=== PATIENT | male | born 1975 | race Caucasian/White ===

== ENCOUNTER 2023-10-30 16:44 | Inpatient (IN) | payer BC, SELFPAY ==
[2023-10-30] VITALS (13 sets, daily range): BP systolic 149–180; BP diastolic 31–134; PULSE 104–137; RESP 16–20; TEMP 36.6–36.9; O2SAT 95–98; BMI 39.1
--- NOTE | ~2023-10-30 | XR_ITS ---
EXAMINATION: XR CHEST 2 VIEW CLINICAL INFORMATION: Shortness of breath COMPARISON: None TECHNIQUE: PA and lateral views of the chest obtained. FINDINGS: Pulmonary vascular congestion and redistribution are suspected as the upper lung zone vessels are prominent. The cardiac silhouette is mildly enlarged. There are no pleural effusions. XR/XR chest 2V IMPRESSION: Cardiomegaly with pulmonary vascular congestion and redistribution indicative of congestive heart failure.
--- NOTE | 2023-10-30 16:52 | ECG_ITS ---
Test Reason : CHEST PAIN Blood Pressure : / mmHG Vent. Rate : 136 BPM Atrial Rate : 136 BPM P-R Int : 164 ms QRS Dur : 106 ms QT Int : 288 ms P-R-T Axes : 053 -13 042 degrees QTc Int : 433 ms Atrial fibrillation with rapid ventricular response with premature ventricular or aberrantly conducted complexes Minimal voltage criteria for LVH, may be normal variant ( Crescent product ) Borderline ECG No previous ECGs available Referred By: Kimmy Mahmood Electronically Signed By:PELON PARKS MD
--- NOTE | 2023-10-30 16:58 | ED.GENADULT ---
HPI - General Adult General Chief complaint: Arrhythmia/Palpitations Stated complaint: High BP Time Seen by Provider: 10/30/23 17:36 Source: patient Mode of arrival: ambulatory Limitations: no limitations History of Present Illness ED Provider: Dr. Debbi Alston HPI narrative: Patient comes to the emergency room complaining of palpitations and shortness of breath. Patient states that he went to see his primary care physician today, patient states that for the last few days he has been complaining of mild shortness of breath, initially thought he had a mild URI. Patient states that his PCP then EKG in the office and told him that he has atrial fibrillation, sent him to the emergency room for further evaluation. Patient denies chest pain or shortness of breath at this time, no palpitations. Patient states that he was also told that his blood pressure was elevated, patient states he has no history of hypertension. Related Data Allergies Allergy/AdvReac Type Severity Reaction Status Date / Time No Known Allergies Allergy Verified 10/30/23 17:01 Review of Systems Review of Systems: Constitutional : No Weight loss, No Fever, No Chills, No Night Sweats, No Fatigue, No Malaise ENT/Mouth : No Hearing loss, No Ear Pain, No Nasal Congestion, No Sinus Pain, No Hoarseness, No sore throat, No Rhinorrhea, No Swallowing Difficulty Eyes: No Eye Pain, No Swelling, No Redness, No Foreign Body, No Discharge, No Vision Changes Cardiovascular : No Chest Pain, complaining of mild shortness of breath worse with exertion vitals are retirement addressed, No Palpitations Respiratory : No Cough, No Sputum, No Wheezing, No Smoke Exposure, complaining of Dyspnea Gastrointestinal : No Nausea, No Vomiting, No Diarrhea, No Constipation, No abdominal Pain, No Hematochezia, No Melena Genitourinary : no irregular bleeding, No Dysuria, No Urinary Frequency, No Hematuria, No Urinary Incontinence, No Urgency, No Flank Pain, No Urinary Flow Changes, No Hesitancy Musculoskeletal : No joint pain, No Myalgias, No Joint Swelling Skin : No Skin Lesions, No rash Neuro : No Weakness, No Numbness, No Paresthesias, No Loss of Consciousness, No Dizziness, No Headache Psych : No Anxiety/Panic, No Depression, No SI/HI/AH/VH, No Social Issues, Heme/Lymph: No Bruising, No Bleeding,No Lymphadenopathy Endocrine : No Polyuria, No Polydipsia, No Temperature Intolerance [facility] Social History Social History Unable to assess alcohol history related to: Unable to respond Patient Tobacco Use Status: Never used Tobacco Advance Directives: No Advance Directives Information Provided: Yes Nutrition Risks: No Nutritional Risk Physical Exam ED Vital Signs: Vital Signs - 24 hr 10/30/23 16:57 10/30/23 18:04 10/30/23 18:07 Temperature 97.9 F Pulse Rate 137 H 131 H 131 H Respiratory Rate 16 20 Blood Pressure 149/100 H 180/111 H 180/111 H Pulse Oximetry 98 96 Oxygen Delivery Method Room Air Room Air 10/30/23 19:20 10/30/23 19:52 10/30/23 20:15 Temperature 98.5 F Pulse Rate 122 H 120 H 117 H Respiratory Rate 20 20 Blood Pressure 160/120 H 177/129 H 168/132 H Pulse Oximetry 96 96 Oxygen Delivery Method Room Air Room Air 10/30/23 20:35 10/30/23 20:49 10/30/23 20:55 Temperature Pulse Rate 114 H 125 H Respiratory Rate 20 20 Blood Pressure 158/134 H 158/134 H 158/131 H Pulse Oximetry 96 96 Oxygen Delivery Method Room Air Room Air 10/30/23 21:04 10/30/23 21:07 Temperature Pulse Rate 121 H 126 H Respiratory Rate Blood Pressure 158/31 H 158/31 H Pulse Oximetry Oxygen Delivery Method BMI result Body Mass Index 39.1 Const Other: Appearance: Alert. Oriented X3. No acute distress. Eyes: Pupils equal, round and reactive to light. ENT: Pharynx normal. Neck: Normal inspection. Neck supple. No lymph nodes noted. No crepitus CVS: Normal heart rate and rhythm. Pulses normal. Normal S1 and S2 Respiratory: Irregularly irregular heart rate in the 140s. Mild bilateral crackles in the both bases, No Wheezing. No rales Abdomen: Soft and nontender. No rigidity. No distention. Skin: Skin warm and dry. Normal skin color. Normal skin turgor. Extremities: No lower extremity edema. No Lacerations. No Rash Neuro: Oriented X 3. No motor deficit. No sensory deficit. Moving all extremities. No slurred speech. CN 2 through 12 grossly intact Psych: calm, cooperative, normal affect Course Course Course Narrative: This is a Rapid Medical Examination (RME) performed by Alonzo Mahmood PA-C in triage. Full HPI, ROS, assessment and treatment plan per primary provider in the Main ED. 48 yo male here for eval of SOB x1 week, worsening last night while sleeping. sob exacerbated with exertion. not on AC. no hx of HTN. denies chest pain, palpitations. no hx of NV, CAD. was at Dr. Gibbons office [employer], EKG showing new onset afib. Dr. merritt brought him down to ED. Plan: ekg, labs, trop, cxr Medications Administered Generic Name Dose Route Start Last Admin Trade Name Freq PRN Reason Stop Dose Admin Apixaban 5 mg 10/30/23 21:00 10/30/23 21:04 Apixaban 5 Mg Tablet PO 5 mg BID MAGDALENA Administration Diltiazem HCl 30 mg 10/30/23 21:00 10/30/23 21:04 Diltiazem Hcl 30 Mg Tablet PO 30 mg QID MAGDALENA Administration Protocol Diltiazem HCl 125 mg/ Sodium 125 mls @ 0 mls/hr 10/30/23 20:00 10/30/23 21:07 Chloride IVCONT 10 mg/hr .Q0M MAGDALENA 10 mls/hr Administration Protocol Per Protocol Discontinued Medications Generic Name Dose Route Start Last Admin Trade Name Freq PRN Reason Stop Dose Admin Diltiazem HCl 10 mg 10/30/23 18:02 10/30/23 18:07 Diltiazem Hcl 50 Mg/10 Ml Vial IVPUSH 10/30/23 18:03 10 mg STAT STA Administration Diltiazem HCl 10 mg 10/30/23 19:13 10/30/23 19:20 Diltiazem Hcl 50 Mg/10 Ml Vial IVPUSH 10/30/23 19:14 10 mg STAT STA Administration Furosemide 40 mg 10/30/23 19:58 10/30/23 20:49 Furosemide 40 Mg/4 Ml Vial IVPUSH 10/30/23 19:59 40 mg ONCE ONE Administration Protocol Medical Decision Making Medical Decision Making [facility] Narrative: -my interpretation of EKG: Atrial fibrillation, heart rate 136, no ST segment depression or elevation, nonspecific T-wave changes, NSTEMI not suspected, QTC 433 -my interpretation of labs: Normal hematology and chemistry, BNP 631, troponins 76.5, only for the patient -my interpretation of chest x-ray: Cardiomegaly, mild pulmonary edema -patient received initially a dose of Cardizem 10 mg. Blood pressure in the 190s, patient's blood pressure did not change, heart rate improved to 110, still in AFib. -Patient received a 2nd dose of Cardizem 10 mg, a total of 20 mg. Also patient received Lasix. -I discussed with the patient that now he has history of hypertension, atrial fibrillation and CHF. -patient being admitted, discussed the patient with Dr. Guan Differential Diagnosis Differential Diagnoses: The differential diagnosis associated with the presentation includes (CHF, atrial fibrillation, atrial flutter, SVT, hypertensive urgency) Admission/Observation Consideration of admission/observation: Escalation of care including admission/observation considered Consult Healthcare Provider Management of the patient was discussed with: Hospitalist Lab Data MDM Lab Attestation statement: I reviewed the patient's lab results. 10/30/23 17:13 10/30/23 17:13 Labs: Lab Results 10/30/23 10/30/23 Range/Units 17:13 17:15 WBC 8.4 (4.8-10.8) X10*3/uL RBC 5.27 (4.60-5.80) X10*6/uL Hgb 16.1 (14.0-18.0) g/dl Hct 47.3 (42.0-52.0) % MCV 89.8 (80.0-98.0) fL MCH 30.6 (27.0-33.0) pg MCHC 34.0 (31.0-36.0) g/dl RDW 13.5 (11.0-16.0) % Plt Count 248 (160-400) X10*3/uL MPV 11.3 (9.4-12.4) fL Immature Gran % (Auto) 0.7 H (0.0-0.4) % Neut % (Auto) 71.8 (45-73) % Lymph % (Auto) 17.3 L (20-40) % [place] % (Auto) 8.9 (2-11) % Eos % (Auto) 0.7 (0-4) % Baso % (Auto) 0.6 (0-2) % Lymph # (Auto) 1.5 (1.2-4.9) X10*3/uL [place] # (Auto) 0.7 (0.1-1.2) X10*3/uL Eos # (Auto) 0.1 (0.0-0.4) X10*3/uL Baso # (Auto) 0.1 (0.0-0.2) X10*3/uL Abs Immat Gran (auto) 0.06 H (0.00-0.03) X10*3/uL Absolute Neuts (auto) 6.0 (2.0-8.3) x10*3/uL Absolute Nucleated RBC 0.000 (0.0-0.012) X10*3/uL Nucleated RBC % (auto) 0.0 (0.0-0.2) /100WBC Hold Blue Top SEE NOTE Sodium 145 (135-145) mmol/L Potassium 3.4 (3.3-5.1) mmol/L Chloride 108 (96-108) mmol/L Carbon Dioxide 23 (22-29) mmol/L Anion Gap 17 (12-20) BUN 21 H (9-16) mg/dL Creatinine 1.31 (0.5-1.4) mg/dL Estim Creat Clear Calc 101.3 Estimated GFR 59 Random Glucose 122 H (60-115) mg/dL Calcium 9.4 (8.4-10.2) mg/dL Magnesium 2.2 (1.6-2.6) mg/dL Total Bilirubin 1.0 (0.0-1.0) mg/dL AST 33 (5-37) U/L ALT 47 H (0-40) U/L Alkaline Phosphatase 70 (39-117) U/L Troponin I High Sens 76.5 H (<3.5-35.0) ng/L B-Natriuretic Peptide 631 H (<100) pg/mL Total Protein 7.0 (6.5-8.0) g/dL Albumin 4.1 (3.5-5.0) g/dL Lipase 14 (8-78) U/L Independent Interpretation I performed an independent interpretation of an: EKG and Plain X-Ray Radiology Impression Discussion of test interpretation with radiology: I have reviewed the radiologist's reading. Radiologist Impression: Pulmonary vascular congestion and redistribution are suspected as the upper lung zone vessels are prominent. The cardiac silhouette is mildly enlarged. There are no pleural effusions. XR/XR chest 2V IMPRESSION: Cardiomegaly with pulmonary vascular congestion and redistribution indicative of congestive heart failure. Critical Care Time Critical Care Time Critical Care Time: Yes Total Critical Care Time: 60 Attestation: Pulmonary vascular congestion and redistribution are suspected as the upper lung zone vessels are prominent. The cardiac silhouette is mildly enlarged. There are no pleural effusions. XR/XR chest 2V IMPRESSION: Cardiomegaly with pulmonary vascular congestion and redistribution indicative of congestive heart failure. Discharge Plan Discharge Clinical Impression: Acute congestive heart failure, Atrial fibrillation, Hypertensive urgency Patient Disposition: Admitted As Inpatient Print Language: Azeri
[2023-10-30 17:19] LABS: MANUAL DIFF FLAG NO
[2023-10-30 17:33] LABS: Basophils Absolute Auto 0.1 X10*3/uL (0.0-0.2); Basophils Percent Auto 0.6 % (0-2); Eosinophils Absolute Auto 0.1 X10*3/uL (0.0-0.4); Eosinophils Percent Auto 0.7 % (0-4); Hematocrit 47.3 % (42.0-52.0); Hemoglobin 16.1 g/dl (14.0-18.0); Imm Gran Abs Auto 0.06 X10*3/uL (0.00-0.03); Imm Gran Pct Auto 0.7 % (0.0-0.4); Lymphocytes Absolute Auto 1.5 X10*3/uL (1.2-4.9); Lymphocytes Percent Auto 17.3 % (20-40); Mean Corpuscular Hemoglobin 30.6 pg (27.0-33.0); Mean Corpuscular Volume 89.8 fL (80.0-98.0); Mean Platelet Volume 11.3 fL (9.4-12.4); Monocytes Absolute Auto 0.7 X10*3/uL (0.1-1.2); Monocytes Percent Auto 8.9 % (2-11); Neutrophils Percent Auto 71.8 % (45-73); Platelet Count 248 X10*3/uL (160-400); Red Blood Count 5.27 X10*6/uL (4.60-5.80); Red Cell Distribution Width 13.5 % (11.0-16.0); White Blood Count 8.4 X10*3/uL (4.8-10.8)
[2023-10-30 17:41] LABS: Alanine Aminotransferase 47 U/L (0-40); Albumin Level 4.1 g/dL (3.5-5.0); Alkaline Phosphatase 70 U/L (39-117); Anion Gap 17 (12-20); Aspartate Amino Transferase 33 U/L (5-37); Blood Urea Nitrogen 21 mg/dL (9-16); Calcium 9.4 mg/dL (8.4-10.2); Carbon Dioxide 23 mmol/L (22-29); Chloride 108 mmol/L (96-108); Creatinine Clr Calc Pharmacy 101.3; Estimated Glomerular Filt Rate 59; Glucose Random 122 mg/dL (60-115); Lipase 14 U/L (8-78); Magnesium 2.2 mg/dL (1.6-2.6); Potassium 3.4 mmol/L (3.3-5.1); Sodium 145 mmol/L (135-145)
[2023-10-30 17:48] LABS: Troponin-I High Sensitivity 76.5 ng/L (<3.5-35.0)
[2023-10-30] MEDS: dilTIAZem HCL 50 MG/10 ML VIAL 10 MG IVPUSH ×2 (18:07→19:20)
[2023-10-30 18:53] LABS: B Type Natriuretic Peptide 631 pg/mL (<100)
--- NOTE | 2023-10-30 19:27 | PC.NURSE ---
Pt aox4 resting at the bedside. Medicated with Cardizem 10mg as ordered. Pt continues to be in a-fib with HR 120's. Denies chest pain and sob at this time. Monitoring is ongoing.
--- NOTE | 2023-10-30 19:53 | MHC.EDTECH ---
This tech took over care of patient at 1900,hourly rounds and vitals completed,BP is elevated 177/129 and HR is 120,RN and MD made aware. Belongings list completed and copy placed in chart.
--- NOTE | 2023-10-30 20:47 | P.HPHOSP_ITS ---
History of Present Illness Date of Service: 10/30/23 Chief Complaint: Dyspnea This is a 48-year-old male with no pertinent past medical history and not on prescription medications who presents to the emergency department for evaluation of dyspnea. Patient states he has been having dyspnea that started 5 days prior to presentation. He had an episode of PND 2 days prior to presentation. Admits orthopnea and dyspnea which is worse with exertion. No history of similar symptoms in the past. Also had an episode of palpitations 2 days ago. Patient went to his PCP today and was asked to come to the ER. No history of irregular heart rhythms or CHF in the past. No history of coronary artery disease. No family history of early CAD. Patient denies fever, chills, chest discomfort, abdominal pain, changes in urinary or bowel habits. In the emergency department, patient was found to be in AFib with RVR and imaging concerning for pulmonary edema with raised BNP. Review of Systems 2 Constitutional: Constitutional: Reports no additional constitutional complaints Cardiovascular: Cardiovascular: Reports rapid heart rate, Reports dyspnea on exertion, Reports orthopnea and Reports paroxysmal nocturnal dyspnea Respiratory: Respiratory: Reports dyspnea on exertion Gastrointestinal: Gastrointestinal: Reports no additional gastrointestinal complaints Genitourinary: Genitourinary: Reports no additional male genitourinary complaints PMFSH Pertinent family history: No family history of early CAD Social History Unable to assess alcohol history related to: Unable to respond Patient Tobacco Use Status: Never used Tobacco Meds Allergies Allergy/AdvReac Type Severity Reaction Status Date / Time No Known Allergies Allergy Verified 10/30/23 17:01 Active Medications: Current Medications Diltiazem HCl 125 mg/ Sodium (Chloride) 125 mls @ 0 mls/hr IVCONT .Q0M MAGDALENA; Protocol Physical Exam 2 Vital Signs and Narrative: Vital Signs: Last Vital Signs Temp 98.5 F 10/30/23 19:52 Pulse 120 H 10/30/23 19:52 Resp 20 10/30/23 19:52 BP 177/129 H 10/30/23 19:52 Pulse Ox 96 10/30/23 19:52 O2 Del Method Room Air 10/30/23 19:52 BMI result Body Mass Index 39.1 Middle-aged male lying in bed in no distress Neck supple, + JVD Irregularly irregular, S1-S2 heard Bilateral crackles present Abdomen soft nontender, no guarding, no rigidity Patient is awake, alert and oriented to self, place, time and person ; no focal motor deficit Psych: Normal mood Bilateral pedal edema Results Labs 10/30/23 17:13 10/30/23 17:13 Labs: Laboratory Results - last 24 hr 10/30/23 10/30/23 17:13 17:15 MCV 89.8 MCH 30.6 MCHC 34.0 RDW 13.5 Plt Count 248 MPV 11.3 Immature Gran % (Auto) 0.7 H Neut % (Auto) 71.8 Lymph % (Auto) 17.3 L [place] % (Auto) 8.9 Eos % (Auto) 0.7 Baso % (Auto) 0.6 Lymph # (Auto) 1.5 [place] # (Auto) 0.7 Eos # (Auto) 0.1 Baso # (Auto) 0.1 Abs Immat Gran (auto) 0.06 H Absolute Neuts (auto) 6.0 Absolute Nucleated RBC 0.000 Nucleated RBC % (auto) 0.0 Hold Blue Top SEE NOTE Anion Gap 17 Estim Creat Clear Calc 101.3 Estimated GFR 59 Random Glucose 122 H Calcium 9.4 Magnesium 2.2 Total Bilirubin 1.0 AST 33 ALT 47 H Alkaline Phosphatase 70 Troponin I High Sens 76.5 H B-Natriuretic Peptide 631 H Total Protein 7.0 Albumin 4.1 Lipase 14 Imaging Radiologist's Impressions: Impressions Chest X-Ray 10/30/23 18:40 IMPRESSION: Cardiomegaly with pulmonary vascular congestion and redistribution indicative of congestive heart failure. Assessment and Plan (1) Acute congestive heart failure: Status: Acute (2) Atrial fibrillation with RVR: Status: Acute Plan This is a 48-year-old male with no pertinent past medical history and not on prescription medications who presents to the emergency department for evaluation of dyspnea. #. Acute congestive heart failure, unknown EF (new diagnosis): Will admit patient and initiate IV diuresis. Strict I's and O's. Low-salt diet. Obtaining transthoracic echocardiogram and consulting Cardiology. #. AFib with RVR, new diagnosis: Currently on IV diltiazem drip. Chads Vasc score 2. Initiating anticoagulation. Appreciate cardiology assistance #. Hypertensive urgency/emergency: Monitor blood pressure with diuresis and SA alondra blocking agents. Trend and optimize #. Elevated troponin: Likely type 2 in the setting of increased demand. Trend. DVT prophylaxis: Kalyn Full code Admit as inpatient and will require two night minimum hospital stay for IV diltiazem drip, IV diuresis, close monitoring of heart rate and volume status (as above), which is not possible in a lesser acute setting. Specialist consult pending Quality Stroke Does the patient have a stroke diagnosis?: No VTE Prior VTE?: No VTE Risk Level:: Medical - moderate - high VTE Device Contraindication: Treatment Not Indicated VTE Drug Contraindication: N/A - Med Ordered
[2023-10-30] MEDS: Furosemide 40 MG/4 ML VIAL IVPUSH (20:49)
[2023-10-30] MEDS: Apixaban 5 MG TABLET PO (21:04)
[2023-10-30] MEDS: dilTIAZem HCL 30 MG TABLET PO (21:04)
[2023-10-30] MEDS: dilTIAZem HCL 125 MG in 0.9 % Sodium Chloride 100 ML 10 MG IVCONT (21:07)
--- NOTE | 2023-10-30 21:13 | PC.NURSE ---
Diltiazem drip started at 10mg/hr per protocol. Pt continues to be in a-fib on the monitor with HR 120-140 with eleveted BP 167/136. Dr. Guan is aware. Pt denies any chest pain or sob at this time.Monitoring is ongoing.
--- NOTE | 2023-10-30 21:26 | MHC.EDTECH ---
Patient ambulated to the bathroom with a steady gait,BP elevated 158/131 HR 125 RN is aware.call de la cruz in reach
[2023-10-30 22:15] LABS: Troponin-I High Sensitivity 84.6 ng/L (<3.5-35.0)
--- NOTE | 2023-10-30 22:21 | PHA.MEDREC ---
Pharmacy Consult ? Medication Reconciliation Pharmacy has completed the medication reconciliation. Patient on no medications
--- NOTE | 2023-10-30 22:46 | PC.NURSE ---
Pt aox4 resting at the bedside. Continues to be in a-fib with HR 120's. Drip increased to 15m/hr per protocol. Monitoring is ongoing.
--- NOTE | 2023-10-30 23:43 | MHC.EDTECH ---
Patient urinated 200MLS of yellow urine in urinal,hourly rounds and vitals completed,BP elevated 173/110,HR 104 RN is aware
--- NOTE | 2023-10-30 23:54 | PC.NURSE ---
Yonny text sent to Dr. Guan regarding elevated BP. Orders to continue to monitor.
[2023-10-31] VITALS (12 sets, daily range): BP systolic 149–165; BP diastolic 101–134; PULSE 94–116; RESP 14–98; TEMP 36.7–36.9; O2SAT 95–96
--- NOTE | 2023-10-31 02:50 | MHC.EDTECH ---
Hourly rounds and vitals completed,BP elevated 155/115, HR 105, RN and hospitalist are aware.Patient urinated 300MLS in urinal.
[2023-10-31 05:14] LABS: MANUAL DIFF FLAG NO
[2023-10-31 05:17] LABS: Basophils Absolute Auto 0.1 X10*3/uL (0.0-0.2); Basophils Percent Auto 0.6 % (0-2); Eosinophils Absolute Auto 0.1 X10*3/uL (0.0-0.4); Hematocrit 45.9 % (42.0-52.0); Hemoglobin 15.8 g/dl (14.0-18.0); Imm Gran Abs Auto 0.03 X10*3/uL (0.00-0.03); Imm Gran Pct Auto 0.4 % (0.0-0.4); Lymphocytes Absolute Auto 1.5 X10*3/uL (1.2-4.9); Lymphocytes Percent Auto 17.8 % (20-40); Mean Corpuscular HGB Conc 34.4 g/dl (31.0-36.0); Mean Corpuscular Hemoglobin 30.9 pg (27.0-33.0); Mean Corpuscular Volume 89.8 fL (80.0-98.0); Monocytes Absolute Auto 0.8 X10*3/uL (0.1-1.2); Monocytes Percent Auto 8.9 % (2-11); Neutrophils Percent Auto 71.3 % (45-73); Platelet Count 209 X10*3/uL (160-400); Red Blood Count 5.11 X10*6/uL (4.60-5.80); Red Cell Distribution Width 13.4 % (11.0-16.0); White Blood Count 8.4 X10*3/uL (4.8-10.8)
[2023-10-31 05:50] LABS: Anion Gap 14 (12-20); Blood Urea Nitrogen 15 mg/dL (9-16); Calcium 8.9 mg/dL (8.4-10.2); Carbon Dioxide 23 mmol/L (22-29); Chloride 108 mmol/L (96-108); Creatinine Clr Calc Pharmacy 127.6; Estimated Glomerular Filt Rate > 60; Glucose Random 107 mg/dL (60-115); Potassium 2.9 mmol/L (3.3-5.1); Sodium 142 mmol/L (135-145)
--- NOTE | 2023-10-31 05:55 | PC.NURSE ---
Critical lab received: Potassium 2.9 Addison text sent to Dr. Guan. No new orders received at this time.
[2023-10-31 06:01] LABS: Thyroid Stimulating Hormone 1.11 uIU/mL (0.32-4.0)
--- NOTE | 2023-10-31 06:25 | MHC.EDTECH ---
Hourly rounds and vitals completed,BP elevated 149/116,HR 105 RN made aware. Patient is resting comfortably at this time,call de la cruz in reach
[2023-10-31] MEDS: Potassium Chloride Packet 20 MEQ PACKET 40 MEQ PO (06:47)
--- NOTE | 2023-10-31 07:00 | CA_ITS ---
Transthoracic Echocardiogram Patient (Last, First, Middle): Wellington Salinas W Gender: Male Date of : 1975 Age: 48 Procedure Date: 10/31/2023 Procedure Type: Transthoracic Echocardiogram Location: ER Height: 185.42 cm Weight: 134.27 kg BSA: 2.54 m2 Heart Rate: 103 bpm BP: 149 / 116 mmHg Transfer Car Operator Drier: Referring MD: Lou Guan MD Symptoms: CHF Study Quality: Adequate w contrast ECG Rhythm: Atrial Fibrillation w RVR Conclusions: - Normal left ventricular cavity size. There is severely increased left ventricular wall thickness. The left ventricular systolic function is severely decreased. The visually estimated ejection fraction is between 20-25%. - Mildly increased right ventricular cavity size. There is borderline right ventricular systolic function. - The left atrium is severely dilated. - Significantly elevated right atrial pressure. - There is mild dilatation of the sinuses of Valsalva measuring 4.20 cm and mild dilatation of the ascending aorta measuring 4.20 cm. Findings Procedure Information Contrast agent, definity, is being given per protocol without apparent complications. Left Ventricle Normal left ventricular cavity size. There is severely increased left ventricular wall thickness. The left ventricular systolic function is severely decreased. The visually estimated ejection fraction is between 20 25%. There is severe global hypokinesis. Diastolic function is indeterminate on the basis of available data. Right Ventricle Mildly increased right ventricular cavity size. There is borderline right ventricular systolic function. Atria The left atrium is severely dilated. Aortic Valve The aortic valve was not well visualized. There is no aortic valve stenosis. There is no aortic valve regurgitation. Mitral Valve The mitral valve appears normal. There is trace mitral valve regurgitation. There is no mitral valve stenosis. Pulmonic Valve The pulmonic valve is likely normal. Tricuspid Valve Likely normal tricuspid valve structure and function. There is trace tricuspid valve regurgitation. Significantly elevated right atrial pressure. There is no evidence of pulmonary hypertension. Great Vessels There is mild dilatation of the sinuses of Valsalva measuring 4.20 cm and mild dilatation of the ascending aorta measuring 4.20 cm. Venous The inferior vena cava is dilated and does not collapse with inspiration. Pericardium/Pleural There is no evidence of pericardial effusion. Prior Study Comparison No prior study available for comparison. Measurements 2D Linear Measurements IVSd: 1.55 0.6-0.9/0.6-1.0 cm LVIDd: 5.32 3.9-5.3/4.2-5.9 cm LVIDd Index: 2.09 2.4-3.2/2.2-3.1 cm/m2 LVIDs: 4.10 2.0-3.6 cm LVPWd: 1.56 0.7-1.1 cm LA Diam: 6.80 2.7-3.8/3.0-4.0 cm LAIDs Index: 2.68 1.5-2.3 cm/m2 LV Mass: 466.45 67-162/88-224 g LV Mass Index: 183.64 43-95/49-115 g/m2 LVOT Diam: 2.70 3.0+(-)1.3 cm 2D Systolic Function EF 4C: 24.20 >55% EF 2C: 18.10 >55% EF BiP: 21.40 >55% Mitral Valve MV Pk E: 0.86 MV Decel Time: 88.00 E'Lateral: 13.20 E'Medial: 6.96 E/E' Med: 12.40 E/E' Lat: 6.50 PHT: 26.00 MVA PHT: 8.46 Decel Lasalle: 9.78 Aortic Valve AoV Pk Bradley: 1.45 AoV Mn Bradley: 0.89 AoV VTI: 0.22 AoV Pk Grad: 8.00 Aov Mn Grad: 4.00 CLAUDIA Cont.VTI: 3.42 LVOT LVOT Pk Bradley: 0.78 LVOT Mn Bradley: 0.49 LVOT VTI: 0.13 LVOT Pk Grad: 2.00 LVOT Mn Grad: 1.00 LVOT Diam: 2.70 LVOT Area: 5.73 Diastolic Function MV Pk E: 0.86 E'Medial: 6.96 E/E' Med: 12.40 E' Laterial: 13.20 E/E' Lat: 6.50 Right Ventricle TAPSE (mm): 24.40 TVS' Rbadley: 13.60 Tricuspid Valve TR Pk Bradley: 2.08 TR Pk Grad: 17.00 RA Press: 8.00 RVSP: 32.00 Great Vessels Aorta Sinus of Valsalva: 4.20 2.0-3.5 cm Ao Asc: 4.20 2.1-3.4 cm Pulmonary Valve PV Pk Bradley: 0.93 Peak PV Grad: 3.00 Updated in Other Vendor System with Status of Final Brad Khanna MD electronically signed on 10/31/2023 3:40:32 PM with status of Final
[2023-10-31] MEDS: dilTIAZem HCL 30 MG TABLET PO (08:01)
[2023-10-31] MEDS: Apixaban 5 MG TABLET PO ×2 (08:04→20:59)
[2023-10-31] MEDS: Furosemide 40 MG/4 ML VIAL IVPUSH ×2 (08:04→18:16)
[2023-10-31] MEDS: 0.9 % Sodium Chloride Flush 3 ML SYRINGE IVFLUSH (08:04)
--- NOTE | 2023-10-31 11:06 | PC.NURSE ---
Resumed care of patient at 0700, pt remains on dilt drip at this time, he is a/ox4 Denies sob/cp/n/v/d. Pt getting bedside ECHO at this time. Awaiting bed placement
--- NOTE | 2023-10-31 11:17 | HO.PM.IMPN ---
Subjective Subjective Date of Service: 10/31/23 Interval History: sob improved Physical Exam Vital Signs: Vital Signs: Last Vital Signs Temp 98.1 F 10/31/23 06:24 Pulse 109 H 10/31/23 08:01 Resp 16 10/31/23 06:24 BP 165/134 H 10/31/23 08:04 Pulse Ox 96 10/31/23 06:24 O2 Del Method Room Air 10/31/23 06:24 BMI result Body Mass Index 39.1 General: AO X 3, no acute distress Resp: CTA bilateral, no accessory muscles used CVS: S1,S2,irregular rapid, 2+ edema GI: soft, non tender, non distended Neuro: motor grossly intact, alert Psych: appropriate affect, appropriate insight Objective Data Active Medications Acetaminophen (Acetaminophen 325 Mg Tablet) 650 mg PO Q6H PRN PRN Reason: Pain, Mild (Pain Scale 1-3) Apixaban (Apixaban 5 Mg Tablet) 5 mg PO BID [facility] Last Admin: 10/31/23 08:04 Dose: 5 mg Documented By: THEODORE Diltiazem HCl (Diltiazem Hcl 30 Mg Tablet) 30 mg PO QID [facility]; Protocol Last Admin: 10/31/23 08:01 Dose: 30 mg Documented By: THEODORE Furosemide (Furosemide 40 Mg/4 Ml Vial) 40 mg IVPUSH DAILY [facility]; Protocol Last Admin: 10/31/23 08:04 Dose: 40 mg Documented By: THEODORE Diltiazem HCl 125 mg/ Sodium (Chloride) 125 mls @ 0 mls/hr IVCONT .Q0M [facility]; Protocol Last Titration: 10/31/23 10:53 Dose: Infused Documented By: THEODORE Melatonin (Melatonin 3 Mg Tablet) 6 mg PO BEDTIME PRN PRN Reason: Insomnia Ondansetron HCl (Ondansetron Hcl 4 Mg/2 Ml Vial) 4 mg IVPUSH Q8H PRN PRN Reason: Nausea and Vomiting Sodium Chloride (0.9 % Sodium Chloride Flush 3 Ml Syringe) 3 ml IVFLUSH QSHIFT [facility] Last Admin: 10/31/23 08:04 Dose: 3 ml Documented By: THEODORE Labs 10/31/23 05:09 10/31/23 05:09 Labs: Laboratory Results - last 24 hr 10/30/23 10/30/23 10/30/23 17:13 17:15 21:49 MCV 89.8 MCH 30.6 MCHC 34.0 RDW 13.5 Plt Count 248 MPV 11.3 Immature Gran % (Auto) 0.7 H Neut % (Auto) 71.8 Lymph % (Auto) 17.3 L [place] % (Auto) 8.9 Eos % (Auto) 0.7 Baso % (Auto) 0.6 Lymph # (Auto) 1.5 [place] # (Auto) 0.7 Eos # (Auto) 0.1 Baso # (Auto) 0.1 Abs Immat Gran (auto) 0.06 H Absolute Neuts (auto) 6.0 Absolute Nucleated RBC 0.000 Nucleated RBC % (auto) 0.0 Hold Blue Top SEE NOTE Anion Gap 17 Estim Creat Clear Calc 101.3 Estimated GFR 59 Random Glucose 122 H Calcium 9.4 Magnesium 2.2 Total Bilirubin 1.0 AST 33 ALT 47 H Alkaline Phosphatase 70 Troponin I High Sens 76.5 H 84.6 H B-Natriuretic Peptide 631 H Total Protein 7.0 Albumin 4.1 Lipase 14 TSH 10/31/23 05:09 MCV 89.8 MCH 30.9 MCHC 34.4 RDW 13.4 Plt Count 209 MPV 11.0 Immature Gran % (Auto) 0.4 Neut % (Auto) 71.3 Lymph % (Auto) 17.8 L [place] % (Auto) 8.9 Eos % (Auto) 1.0 Baso % (Auto) 0.6 Lymph # (Auto) 1.5 [place] # (Auto) 0.8 Eos # (Auto) 0.1 Baso # (Auto) 0.1 Abs Immat Gran (auto) 0.03 Absolute Neuts (auto) 6.0 Absolute Nucleated RBC 0.000 Nucleated RBC % (auto) 0.0 Hold Blue Top Anion Gap 14 Estim Creat Clear Calc 127.6 Estimated GFR > 60 Random Glucose 107 Calcium 8.9 Magnesium Total Bilirubin AST ALT Alkaline Phosphatase Troponin I High Sens B-Natriuretic Peptide Total Protein Albumin Lipase TSH 1.11 Assessment and Plan (1) Acute congestive heart failure: Status: Acute Plan 48M no significant past medical history who presented with shortness of breath found to have new onset atrial fibrillation and elevated blood pressures Acute unspecified CHF IV Lasix, follow up echo, cardio eval New onset atrial fibrillation with rapid ventricular response On diltiazem infusion, Eliquis Hypertension Continue diuresis, diltiazem DVT prophylaxis with Eliquis Full code reason for continued hospitalization: IV diuresis, rate control Quality Stroke Does the patient have a stroke diagnosis?: No VTE Prior VTE?: No VTE Risk Level:: Medical - moderate - high VTE Device Contraindication: Treatment Not Indicated VTE Drug Contraindication: N/A - Med Ordered
[2023-10-31] MEDS: dilTIAZem HCL 125 MG in 0.9 % Sodium Chloride 100 ML 15 MG IVCONT (11:26)
--- NOTE | 2023-10-31 13:14 | P.CONCA_ITS ---
History of Present Illness History of Present Illness Date of Service: 10/31/23 Requesting physician: Luis Navarrete Chief complaint: afib, CHF Narrative: [age] year gentleman presenting with atrial fibrillation and new onset congestive heart failure. He has history of hypertension and was diagnosed in 2019 but apparently has not followed up with any doctor since then. He has been drinking 2 times a week. He has been noticing some shortness of breath and palpitations over the last couple of weeks. With these symptoms he presented and was noticed to be in congestive heart failure. He was also in AFib with RVR and has significantly elevated blood pressure. He was started on Cardizem to control atrial fibrillation. Denying chest discomfort. Family history of atrial fibrillation in his father but he is in his 70s. He is saying he does not binge but drinks up to 2 times a week and drinks Tequila. No orthopnea or PND. COUNTS INCLUDE 234 BEDS AT THE [facility] Social History Social History Unable to assess alcohol history related to: Unable to respond Patient Tobacco Use Status: Never used Tobacco Advance Directives: No Advance Directives Information Provided: Yes Nutrition Risks: No Nutritional Risk service: No Meds Allergies Allergy/AdvReac Type Severity Reaction Status Date / Time No Known Allergies Allergy Verified 10/30/23 17:01 Active Medications: Current Medications Acetaminophen (Acetaminophen 325 Mg Tablet) 650 mg PO Q6H PRN PRN Reason: Pain, Mild (Pain Scale 1-3) Apixaban (Apixaban 5 Mg Tablet) 5 mg PO BID [facility] Last Admin: 10/31/23 08:04 Dose: 5 mg Furosemide (Furosemide 40 Mg/4 Ml Vial) 40 mg IVPUSH BID@0900,1800 [facility]; Protocol Losartan Potassium (Losartan Potassium 50 Mg Tablet) 50 mg PO DAILY [facility]; Protocol Melatonin (Melatonin 3 Mg Tablet) 6 mg PO BEDTIME PRN PRN Reason: Insomnia Metoprolol Tartrate (Metoprolol Tartrate 25 Mg Tablet) 25 mg PO TID [facility]; Protocol Ondansetron HCl (Ondansetron Hcl 4 Mg/2 Ml Vial) 4 mg IVPUSH Q8H PRN PRN Reason: Nausea and Vomiting Sodium Chloride (0.9 % Sodium Chloride Flush 3 Ml Syringe) 3 ml IVFLUSH QSHIFT [facility] Last Admin: 10/31/23 08:04 Dose: 3 ml Spironolactone (Spironolactone 25 Mg Tablet) 25 mg PO DAILY [facility]; Protocol Home Medications ?Medication ?Instructions ?Recorded ?Confirmed ?Last Taken ?Type No Known Home Meds 10/30/23 10/30/23 Unknown History Physical Exam 2 Vital Signs: Vital Signs: Last Vital Signs Temp 98.1 F 10/31/23 12:18 Pulse 97 10/31/23 12:18 Resp 14 10/31/23 12:18 BP 155/119 H 10/31/23 12:18 Pulse Ox 95 10/31/23 12:18 O2 Del Method Room Air 10/31/23 12:18 BMI result Body Mass Index 39.1 GENERAL APPEARANCE: in no acute distress, pleasant. NECK: no carotid bruit, ++ jugular venous distention. SKIN: no suspicious lesions, warm and dry. HEART: no murmurs, irregular rate and rhythm. Tachycardic. LUNGS: clear to auscultation bilaterally. ABDOMEN: soft, nontender. EXTREMITIES: no edema. PERIPHERAL PULSES: equal. NEUROLOGIC: No gross deficits, AAO X 3 Objective Labs and Meds 10/31/23 05:09 10/31/23 05:09 Lab results: Laboratory Results - last 24 hr 10/30/23 10/30/23 10/30/23 17:13 17:15 21:49 WBC 8.4 RBC 5.27 Hgb 16.1 Hct 47.3 MCV 89.8 MCH 30.6 MCHC 34.0 RDW 13.5 Plt Count 248 MPV 11.3 Immature Gran % (Auto) 0.7 H Neut % (Auto) 71.8 Lymph % (Auto) 17.3 L [place] % (Auto) 8.9 Eos % (Auto) 0.7 Baso % (Auto) 0.6 Lymph # (Auto) 1.5 [place] # (Auto) 0.7 Eos # (Auto) 0.1 Baso # (Auto) 0.1 Abs Immat Gran (auto) 0.06 H Absolute Neuts (auto) 6.0 Absolute Nucleated RBC 0.000 Nucleated RBC % (auto) 0.0 Hold Blue Top SEE NOTE Sodium 145 Potassium 3.4 Chloride 108 Carbon Dioxide 23 Anion Gap 17 BUN 21 H Creatinine 1.31 Estim Creat Clear Calc 101.3 Estimated GFR 59 Random Glucose 122 H Calcium 9.4 Magnesium 2.2 Total Bilirubin 1.0 AST 33 ALT 47 H Alkaline Phosphatase 70 Troponin I High Sens 76.5 H 84.6 H B-Natriuretic Peptide 631 H Total Protein 7.0 Albumin 4.1 Lipase 14 TSH 10/31/23 05:09 WBC 8.4 RBC 5.11 Hgb 15.8 Hct 45.9 MCV 89.8 MCH 30.9 MCHC 34.4 RDW 13.4 Plt Count 209 MPV 11.0 Immature Gran % (Auto) 0.4 Neut % (Auto) 71.3 Lymph % (Auto) 17.8 L [place] % (Auto) 8.9 Eos % (Auto) 1.0 Baso % (Auto) 0.6 Lymph # (Auto) 1.5 [place] # (Auto) 0.8 Eos # (Auto) 0.1 Baso # (Auto) 0.1 Abs Immat Gran (auto) 0.03 Absolute Neuts (auto) 6.0 Absolute Nucleated RBC 0.000 Nucleated RBC % (auto) 0.0 Hold Blue Top Sodium 142 Potassium 2.9 L* Chloride 108 Carbon Dioxide 23 Anion Gap 14 BUN 15 Creatinine 1.04 Estim Creat Clear Calc 127.6 Estimated GFR > 60 Random Glucose 107 Calcium 8.9 Magnesium Total Bilirubin AST ALT Alkaline Phosphatase Troponin I High Sens B-Natriuretic Peptide Total Protein Albumin Lipase TSH 1.11 Imaging Radiologist's impression: Impressions Chest X-Ray 10/30/23 18:40 IMPRESSION: Cardiomegaly with pulmonary vascular congestion and redistribution indicative of congestive heart failure. Assessment and Plan (1) Atrial fibrillation with RVR: Status: Acute (2) Acute congestive heart failure: Status: Acute (3) Hypertensive urgency: Status: Acute Plan Pleasant gentleman with background of hypertension and alcohol use presenting with palpitations and shortness of breath. Clinically noticed to be in congestive heart failure along with AFib with RVR. Diuresed with 40 mg IV Lasix. Monitor electrolytes closely especially potassium and magnesium. He is hypokalemic. Potassium should be repleted. Adding spironolactone 25 mg twice a day. Magnesium should be checked also and repleted accordingly. Metoprolol 25 mg 3 times a day, losartan 50 mg daily. Adding Jardiance 10 mg daily. Apixaban 5 mg twice a day. As he improves we will do JOAQUIN cardioversion. ECHO was reviewed briefly and there was LV dysfunction but we will reported in more detail. Thank you for allowing me to participate in the care of your patient. Please feel free to contact me if you have any questions. Procedures Date of Service Date of Service: 10/31/23
--- NOTE | 2023-10-31 14:05 | MHC.CM.PN ---
Pt. is independent, still working, he has his car in lot here, or will arrange a ride home if needed at DC. PCP confirmed: Dr. Bustos. DC plan is home, self care. CM will follow for DC planning needs.
[2023-10-31] MEDS: Losartan Potassium 50 MG TABLET PO (14:15)
[2023-10-31] MEDS: Spironolactone 25 MG TABLET PO ×2 (14:16→20:56)
[2023-10-31] MEDS: Metoprolol Tartrate 25 MG TABLET PO ×2 (14:16→20:59)
[2023-10-31] MEDS: Empagliflozin 10 MG TABLET PO (18:16)
--- NOTE | 2023-10-31 22:16 | PC.NURSE ---
pt comes in with SOB x 5 days with little to no PMH. Reports SOB worse with exertion. Was in new onset afib and stated on dilt drip ( now discontinued and HR afib with rate control). transitioned to PO medications. Echo and cardio consult. Pt unaware of echo results at this time. Admit for Afib , CHF- BNP 631. Strict I&O. Low sodium diet. Ambulatory at baseline, A/OX4
[2023-11-01] VITALS (15 sets, daily range): BP systolic 135–172; BP diastolic 106–135; PULSE 89–126; RESP 13–22; TEMP 36.6–36.9; O2SAT 95–954
--- NOTE | 2023-11-01 03:26 | PC.NURSE ---
messaged hospitalist about HTN
[2023-11-01 06:19] LABS: Hematocrit 47.4 % (42.0-52.0); Hemoglobin 16.4 g/dl (14.0-18.0); Mean Corpuscular HGB Conc 34.6 g/dl (31.0-36.0); Mean Corpuscular Volume 89.6 fL (80.0-98.0); Platelet Count 218 X10*3/uL (160-400); Red Blood Count 5.29 X10*6/uL (4.60-5.80); Red Cell Distribution Width 13.6 % (11.0-16.0); White Blood Count 8.2 X10*3/uL (4.8-10.8)
[2023-11-01 06:36] LABS: Anion Gap 16 (12-20); Blood Urea Nitrogen 18 mg/dL (9-16); Carbon Dioxide 22 mmol/L (22-29); Chloride 109 mmol/L (96-108); Creatinine Clr Calc Pharmacy 131.4; Estimated Glomerular Filt Rate > 60; Glucose Fasting 98 mg/dL (60-99); Magnesium 2.2 mg/dL (1.6-2.6); Potassium 3.1 mmol/L (3.3-5.1); Sodium 144 mmol/L (135-145)
[2023-11-01] MEDS: Furosemide 40 MG/4 ML VIAL IVPUSH ×2 (08:39→18:02)
[2023-11-01] MEDS: Apixaban 5 MG TABLET PO ×2 (08:40→21:07)
[2023-11-01] MEDS: Losartan Potassium 50 MG TABLET PO ×2 (08:40→21:07)
[2023-11-01] MEDS: Empagliflozin 10 MG TABLET PO (08:40)
[2023-11-01] MEDS: Metoprolol Tartrate 25 MG TABLET PO ×2 (08:41→10:28)
[2023-11-01] MEDS: 0.9 % Sodium Chloride Flush 3 ML SYRINGE IVFLUSH ×2 (08:41→15:10)
[2023-11-01] MEDS: Potassium Chloride ER 20 MEQ TAB.ER.PRT 40 MEQ PO (08:41)
[2023-11-01] MEDS: Spironolactone 25 MG TABLET PO ×2 (08:42→17:22)
--- NOTE | 2023-11-01 08:49 | PC.NURSE ---
Pt is alert/oriented and pleasant. Skin pink warm and dry. Speaking full sentences. Denies pain, SOB or dizziness. HR noted 105-140s, briefly elevated in 140s. HTN with BP 169/121, Dr Navarrete at bedside, aware of HR and BP. Spoke to pt regarding recent Echo results and plan during admit. Meds given. Ate breakfast
--- NOTE | 2023-11-01 10:09 | PC.NURSE ---
Pt remains hypertensive and tachycardic, Dr Navarrete aware, plan to increase Metoprolol
--- NOTE | 2023-11-01 11:20 | HO.PM.IMPN ---
Subjective Subjective Date of Service: 11/01/23 Interval History: sob improved Physical Exam Vital Signs: Vital Signs: Last Vital Signs Temp 98 F 11/01/23 05:41 Pulse 113 H 11/01/23 11:09 Resp 13 11/01/23 11:09 BP 159/117 H 11/01/23 11:09 Pulse Ox 954 H 11/01/23 10:24 O2 Del Method Room Air 11/01/23 10:24 BMI result Body Mass Index 39.1 GENERAL APPEARANCE: in no acute distress, pleasant. NECK: no carotid bruit, ++ jugular venous distention. SKIN: no suspicious lesions, warm and dry. HEART: no murmurs, irregular rate and rhythm. Tachycardic. LUNGS: clear to auscultation bilaterally. ABDOMEN: soft, nontender. EXTREMITIES: no edema. PERIPHERAL PULSES: equal. NEUROLOGIC: No gross deficits, AAO X 3 Objective Data Active Medications Acetaminophen (Acetaminophen 325 Mg Tablet) 650 mg PO Q6H PRN PRN Reason: Pain, Mild (Pain Scale 1-3) Apixaban (Apixaban 5 Mg Tablet) 5 mg PO BID [facility] Last Admin: 11/01/23 08:40 Dose: 5 mg Documented By: SCOTT Empagliflozin (Empagliflozin 10 Mg Tablet) 10 mg PO DAILY [facility] Last Admin: 11/01/23 08:40 Dose: 10 mg Documented By: SCOTT Furosemide (Furosemide 40 Mg/4 Ml Vial) 40 mg IVPUSH BID@0900,1800 [facility]; Protocol Last Admin: 11/01/23 08:39 Dose: 40 mg Documented By: SCOTT Losartan Potassium (Losartan Potassium 50 Mg Tablet) 50 mg PO DAILY [facility]; Protocol Last Admin: 11/01/23 08:40 Dose: 50 mg Documented By: SCOTT Melatonin (Melatonin 3 Mg Tablet) 6 mg PO BEDTIME PRN PRN Reason: Insomnia Metoprolol Tartrate (Metoprolol Tartrate 50 Mg Tablet) 50 mg PO TID [facility]; Protocol Ondansetron HCl (Ondansetron Hcl 4 Mg/2 Ml Vial) 4 mg IVPUSH Q8H PRN PRN Reason: Nausea and Vomiting Sodium Chloride (0.9 % Sodium Chloride Flush 3 Ml Syringe) 3 ml IVFLUSH QSHIFT [facility] Last Admin: 11/01/23 08:41 Dose: 3 ml Documented By: SCOTT Spironolactone (Spironolactone 25 Mg Tablet) 25 mg PO BIDWM [facility]; Protocol Last Admin: 11/01/23 08:42 Dose: 25 mg Documented By: SCOTT Labs 11/01/23 06:08 11/01/23 06:08 Labs: Laboratory Results - last 24 hr 10/31/23 11/01/23 14:51 06:08 MCV 89.6 MCH 31.0 MCHC 34.6 RDW 13.6 Plt Count 218 MPV 11.0 Absolute Nucleated RBC 0.000 Nucleated RBC % (auto) 0.0 Anion Gap 16 Estim Creat Clear Calc 131.4 Estimated GFR > 60 Fasting Glucose 98 Calcium 9.0 Magnesium 2.2 Troponin I High Sens 74.0 H Assessment and Plan (1) Acute congestive heart failure: Status: Acute Plan 48M no significant past medical history who presented with shortness of breath found to have new onset atrial fibrillation and elevated blood pressures Acute systolic CHF IV Lasix cardio following New onset atrial fibrillation with rapid ventricular response lopressor increasing to 50 tid Hypertension Continue diuresis, metoprolol, losartan DVT prophylaxis with Eliquis Full code reason for continued hospitalization: IV diuresis, rate control Quality Stroke Does the patient have a stroke diagnosis?: No VTE Prior VTE?: No VTE Risk Level:: Medical - moderate - high VTE Device Contraindication: Treatment Not Indicated VTE Drug Contraindication: N/A - Med Ordered
--- NOTE | 2023-11-01 11:35 | PM.PNCARD ---
Subjective Subjective Date of Service: 11/01/23 Interval history: Continues to be in AFib with RVR. Respiratory status is better. ECHO reviewed and discussed with the patient that he has severe cardiomyopathy. Physical Exam Vital Signs: Last Vital Signs Temp 98 F 11/01/23 05:41 Pulse 113 H 11/01/23 11:09 Resp 13 11/01/23 11:09 BP 159/117 H 11/01/23 11:09 Pulse Ox 954 H 11/01/23 10:24 O2 Del Method Room Air 11/01/23 10:24 BMI result Body Mass Index 39.1 GENERAL APPEARANCE: in no acute distress, pleasant. NECK: no carotid bruit, + jugular venous distention. SKIN: no suspicious lesions, warm and dry. HEART: no murmurs, irregular rate and rhythm. Tachycardic. LUNGS: clear to auscultation bilaterally. ABDOMEN: soft, nontender. EXTREMITIES: no edema. PERIPHERAL PULSES: equal. NEUROLOGIC: No gross deficits, AAO X 3 Objective Labs and Meds 11/01/23 06:08 11/01/23 06:08 Lab results: Laboratory Results - last 24 hr 10/31/23 11/01/23 14:51 06:08 WBC 8.2 RBC 5.29 Hgb 16.4 Hct 47.4 MCV 89.6 MCH 31.0 MCHC 34.6 RDW 13.6 Plt Count 218 MPV 11.0 Absolute Nucleated RBC 0.000 Nucleated RBC % (auto) 0.0 Sodium 144 Potassium 3.1 L Chloride 109 H Carbon Dioxide 22 Anion Gap 16 BUN 18 H Creatinine 1.01 Estim Creat Clear Calc 131.4 Estimated GFR > 60 Fasting Glucose 98 Calcium 9.0 Magnesium 2.2 Troponin I High Sens 74.0 H Progress Note: A&P Assessment and plan (1) Atrial fibrillation with RVR: Status: Acute (2) Acute congestive heart failure: Status: Acute (3) Cardiomyopathy: Status: Acute Plan 48-year-old gentleman presenting with shortness of breath and congestive heart failure. He has severe cardiomyopathy, has new onset atrial fibrillation with rapid ventricular response and has uncontrolled hypertension. Blood pressure is somewhat improved but still quite elevated. Increasing losartan to 50 mg twice a day. Continue metoprolol 50 t.i.d.. Continue spironolactone. Monitor electrolytes closely. I think he is still congested and can continue IV diuretics currently. We will plan for a JOAQUIN cardioversion for tomorrow. Thank you for allowing me to participate in the care of your patient. Please feel free to contact me if you have any questions. Time Spent With Patient Time: Total time managing care of this patient today ____ minutes. Progress Note: Quality Stroke Does the patient have a stroke diagnosis?: No Procedures Date of Service Date of Service: 11/01/23
[2023-11-01] MEDS: amLODIPine Besylate 2.5 MG TABLET PO (11:52)
--- NOTE | 2023-11-01 12:16 | PC.NURSE ---
pt medicated per AUG. pt alert an awake, calm and cooperative, awaiting placement on IMC. no complaints or concerns at this time, call de la cruz within reach
[2023-11-01] MEDS: Metoprolol Tartrate 50 MG TABLET PO ×2 (15:10→21:07)
--- NOTE | 2023-11-01 18:07 | PC.NURSE ---
medicated per aug, notified SANJAY Hernandez
[2023-11-02] VITALS (20 sets, daily range): BP systolic 136–167; BP diastolic 96–130; PULSE 72–127; RESP 12–20; TEMP 35.9–37; O2SAT 93–98
--- NOTE | 2023-11-02 | ECG_ITS ---
Test Reason : S/P CARDIOVERSION Blood Pressure : / mmHG Vent. Rate : 085 BPM Atrial Rate : 085 BPM P-R Int : 190 ms QRS Dur : 112 ms QT Int : 402 ms P-R-T Axes : 024 -23 083 degrees QTc Int : 478 ms Sinus rhythm with occasional Premature ventricular complexes Possible Left atrial enlargement Minimal voltage criteria for LVH, may be normal variant ( Will product ) Possible Anterior infarct , age undetermined Abnormal ECG When compared with ECG of 30-OCT-2023 17:05, Sinus rhythm has replaced Afib Referred By: Brad Khanna Electronically Signed By:Brad Khanna
[2023-11-02] MEDS: 0.9 % Sodium Chloride Flush 3 ML SYRINGE IVFLUSH ×4 (04:13→20:06)
--- NOTE | 2023-11-02 04:15 | PC.NURSE ---
delay in administering meds due to caring for other critical patients
[2023-11-02 06:18] LABS: Hematocrit 50.3 % (42.0-52.0); Mean Corpuscular HGB Conc 33.8 g/dl (31.0-36.0); Mean Corpuscular Hemoglobin 30.5 pg (27.0-33.0); Mean Corpuscular Volume 90.3 fL (80.0-98.0); Mean Platelet Volume 11.5 fL (9.4-12.4); Platelet Count 232 X10*3/uL (160-400); Red Blood Count 5.57 X10*6/uL (4.60-5.80); Red Cell Distribution Width 13.5 % (11.0-16.0); White Blood Count 10.9 X10*3/uL (4.8-10.8)
--- NOTE | 2023-11-02 06:20 | PC.NURSE ---
Report given to Short stay. Pt planned to go for cardioverison. 2nd IV line placed in right wrist.
[2023-11-02 06:25] LABS: Anion Gap 16 (12-20); Blood Urea Nitrogen 25 mg/dL (9-16); Calcium 9.3 mg/dL (8.4-10.2); Carbon Dioxide 24 mmol/L (22-29); Chloride 107 mmol/L (96-108); Creatinine Clr Calc Pharmacy 107.9; Estimated Glomerular Filt Rate > 60; Glucose Fasting 89 mg/dL (60-99); Magnesium 2.1 mg/dL (1.6-2.6); Potassium 3.2 mmol/L (3.3-5.1); Sodium 144 mmol/L (135-145)
--- NOTE | 2023-11-02 07:00 | CA_ITS ---
Transesophageal Echocardiogram Patient (Last, First, Middle): Wellington Salinas W Gender: Male Date of : 1975 Age: 48 Procedure Date: 11/02/2023 Procedure Type: Transesophageal Echocardiogram [place] [facility] [place]: 185.42 cm Weight: 134.26 kg BSA: 2.54 m2 Heart Rate: bpm Technical Writer And Editor: Referring MD: Brad Khanna MD Symptoms: Afib Conclusion: ??? Normal left ventricular cavity size. The left ventricular systolic function is severely decreased. The visually estimated ejection fraction is between 20-25%. ??? There is no evidence of a thrombus in the left atrial appendage. Moderate spontaneous echo contrast is seen in the left atrial cavity. Findings Procedure Information Consent was obtained prior to the procedure. The probe was passed with no difficulty. Left Ventricle Normal left ventricular cavity size. The left ventricular systolic function is severely decreased. The visually estimated ejection fraction is between 20-25%. There is severe global hypokinesis. Diastolic function is indeterminate on the basis of available data. Right Ventricle Normal right ventricular cavity size and systolic function. Atria There is no evidence of a thrombus in the left atrial appendage. Moderate spontaneous echo contrast is seen in the left atrial cavity. Aortic Valve Normal aortic valve structure and function. There is no aortic valve stenosis. There is trace (trivial) aortic valve regurgitation. Mitral Valve The mitral valve appears normal. There is trace mitral valve regurgitation. There is no mitral valve stenosis. Pulmonic Valve The pulmonic valve is likely normal. Tricuspid Valve Normal tricuspid valve structure. There is trace tricuspid valve regurgitation. Great Vessels All visible segments of the aorta are normal in size. Pericardium/Pleural There is no evidence of pericardial effusion. Updated by Brad Khanna on 11:35 PM with Status of Final Brad Khanna MD electronically signed on 11/02/2023 11:35:53 PM with status of Final
[2023-11-02] MEDS: Spironolactone 25 MG TABLET PO ×2 (07:18→15:57)
[2023-11-02] MEDS: Apixaban 5 MG TABLET PO ×2 (07:18→20:04)
[2023-11-02] MEDS: Losartan Potassium 50 MG TABLET PO ×2 (07:18→20:05)
[2023-11-02] MEDS: Empagliflozin 10 MG TABLET PO (07:18)
[2023-11-02] MEDS: amLODIPine Besylate 2.5 MG TABLET PO (07:19)
[2023-11-02] MEDS: Furosemide 40 MG TABLET PO (07:20)
[2023-11-02] MEDS: Metoprolol Tartrate 50 MG TABLET PO ×3 (07:21→20:04)
[2023-11-02] MEDS: Potassium Chloride ER 20 MEQ TAB.ER.PRT 40 MEQ PO (07:21)
--- NOTE | 2023-11-02 09:54 | HO.PM.IMPN ---
Subjective Subjective Date of Service: 11/02/23 Interval History: sob improved Physical Exam Vital Signs: Vital Signs: Last Vital Signs Temp 97.2 F 11/02/23 07:46 Pulse 120 H 11/02/23 07:46 Resp 20 11/02/23 07:46 BP 142/102 H 11/02/23 07:46 Pulse Ox 95 11/02/23 07:46 O2 Del Method Room Air 11/02/23 07:46 BMI result Body Mass Index 39.1 GENERAL APPEARANCE: in no acute distress, pleasant. NECK: no carotid bruit, + jugular venous distention. SKIN: no suspicious lesions, warm and dry. HEART: no murmurs, irregular rate and rhythm. Tachycardic. LUNGS: clear to auscultation bilaterally. ABDOMEN: soft, nontender. EXTREMITIES: no edema. PERIPHERAL PULSES: equal. NEUROLOGIC: No gross deficits, AAO X 3 Objective Data Active Medications Acetaminophen (Acetaminophen 325 Mg Tablet) 650 mg PO Q6H PRN PRN Reason: Pain, Mild (Pain Scale 1-3) Amiodarone HCl (Amiodarone Hcl 200 Mg Tablet) 400 mg PO BID [facility] Amlodipine Besylate (Amlodipine Besylate 5 Mg Tablet) 5 mg PO DAILY [facility]; Protocol Apixaban (Apixaban 5 Mg Tablet) 5 mg PO BID [facility] Last Admin: 11/02/23 07:18 Dose: 5 mg Documented By: SARAH Empagliflozin (Empagliflozin 10 Mg Tablet) 10 mg PO DAILY [facility] Last Admin: 11/02/23 07:18 Dose: 10 mg Documented By: SARAH Furosemide (Furosemide 40 Mg Tablet) 40 mg PO DAILY [facility]; Protocol Last Admin: 11/02/23 07:20 Dose: 40 mg Documented By: SARAH Losartan Potassium (Losartan Potassium 50 Mg Tablet) 50 mg PO BID [facility]; Protocol Last Admin: 11/02/23 07:18 Dose: 50 mg Documented By: SARAH Melatonin (Melatonin 3 Mg Tablet) 6 mg PO BEDTIME PRN PRN Reason: Insomnia Metoprolol Tartrate (Metoprolol Tartrate 50 Mg Tablet) 50 mg PO TID [facility]; Protocol Last Admin: 11/02/23 07:21 Dose: 50 mg Documented By: SARAH Sodium Chloride (0.9 % Sodium Chloride Flush 3 Ml Syringe) 3 ml IVFLUSH QSHIFT [facility] Last Admin: 11/02/23 07:21 Dose: 3 ml Documented By: SARAH Spironolactone (Spironolactone 25 Mg Tablet) 25 mg PO BIDWM [facility]; Protocol Last Admin: 11/02/23 07:18 Dose: 25 mg Documented By: SARAH Labs 11/02/23 05:22 11/02/23 05:22 Labs: Laboratory Results - last 24 hr 11/02/23 05:22 MCV 90.3 MCH 30.5 MCHC 33.8 RDW 13.5 Plt Count 232 MPV 11.5 Absolute Nucleated RBC 0.000 Nucleated RBC % (auto) 0.0 Anion Gap 16 Estim Creat Clear Calc 107.9 Estimated GFR > 60 Fasting Glucose 89 Calcium 9.3 Magnesium 2.1 Assessment and Plan (1) Acute congestive heart failure: Status: Acute Plan 48M no significant past medical history who presented with shortness of breath found to have new onset atrial fibrillation and elevated blood pressures Acute systolic CHF diuresed well with iv lasix, will change to po maintence cardio following New onset atrial fibrillation with rapid ventricular response lopressor 50 tid plan for natasha/cv today continue eliquis Hypertension Continue diuresis, metoprolol, losartan DVT prophylaxis with Eliquis Full code reason for continued hospitalization: cardioversion Quality Stroke Does the patient have a stroke diagnosis?: No VTE Prior VTE?: No VTE Risk Level:: Medical - moderate - high VTE Device Contraindication: Treatment Not Indicated VTE Drug Contraindication: N/A - Med Ordered
[2023-11-02] MEDS: Amiodarone HCL 200 MG TABLET 400 MG PO ×2 (10:26→20:04)
[2023-11-02] MEDS: amLODIPine Besylate 5 MG TABLET PO (10:26)
--- NOTE | 2023-11-02 11:25 | PM.PNCARD ---
Subjective Subjective Date of Service: 11/02/23 Interval history: Seen examined at bedside. Clinically improving from heart failure. Still has AFib with RVR. Physical Exam Vital Signs: Last Vital Signs Temp 97.2 F 11/02/23 07:46 Pulse 120 H 11/02/23 07:46 Resp 20 11/02/23 07:46 BP 148/96 H 11/02/23 10:26 Pulse Ox 95 11/02/23 07:46 O2 Del Method Room Air 11/02/23 07:46 BMI result Body Mass Index 39.1 GENERAL APPEARANCE: in no acute distress, pleasant. NECK: no carotid bruit, + jugular venous distention. SKIN: no suspicious lesions, warm and dry. HEART: no murmurs, irregular rate and rhythm. Tachycardic. LUNGS: clear to auscultation bilaterally. ABDOMEN: soft, nontender. EXTREMITIES: no edema. PERIPHERAL PULSES: equal. NEUROLOGIC: No gross deficits, AAO X 3 Objective Labs and Meds 11/02/23 05:22 11/02/23 05:22 Lab results: Laboratory Results - last 24 hr 11/02/23 05:22 WBC 10.9 H RBC 5.57 Hgb 17.0 Hct 50.3 MCV 90.3 MCH 30.5 MCHC 33.8 RDW 13.5 Plt Count 232 MPV 11.5 Absolute Nucleated RBC 0.000 Nucleated RBC % (auto) 0.0 Sodium 144 Potassium 3.2 L Chloride 107 Carbon Dioxide 24 Anion Gap 16 BUN 25 H Creatinine 1.23 Estim Creat Clear Calc 107.9 Estimated GFR > 60 Fasting Glucose 89 Calcium 9.3 Magnesium 2.1 Progress Note: A&P Assessment and plan (1) Atrial fibrillation with RVR: Status: Acute (2) Acute congestive heart failure: Status: Acute (3) Cardiomyopathy: Status: Acute Plan 48-year-old gentleman presenting with shortness of breath and congestive heart failure. He has severe cardiomyopathy, has new onset atrial fibrillation with rapid ventricular response and has uncontrolled hypertension. Blood pressure is improving. Continue same medications. Adding amiodarone 400 mg twice a day. Do not see any other medication we can add safely currently specially with hypokalemia. [place]field cardioversion today. Once sinus rhythm was achieved with discharge him home and arrange outpatient EP evaluation for ablation so we can get him off amiodarone. Discussed with him about complete abstinence from alcohol. Thank you for allowing me to participate in the care of your patient. Please feel free to contact me if you have any questions. Time Spent With Patient Time: Total time managing care of this patient today ____ minutes. Progress Note: Quality Stroke Does the patient have a stroke diagnosis?: No Procedures Date of Service Date of Service: 11/02/23
--- NOTE | 2023-11-02 12:13 | MHC.SHP ---
Pre-Procedural Eval Section A - 24 Hr Update-Section A only Date of Service: 11/02/23 The patient is an INPATIENT: Yes Section B - Complete if H&P > 30 days Chief Complaint: afib, CHF Details of Present Illness: For cardioversion with JOAQUIN. Allergies: Allergies Allergy/AdvReac Type Severity Reaction Status Date / Time No Known Allergies Allergy Verified 10/30/23 17:01 Plan Diagnosis/Plan: Unchanged I have reviewed the history and physical and performed a pertinent physical examination on my patient. No changes have occurred unless specified. Time Spent With Patient Time: Total time managing care of this patient today ____ minutes.
--- NOTE | 2023-11-02 12:49 | PC.NURSE ---
patient was given jardiance this AM. per anesthesia Jardiance must be held for 3 days prior to procedure. Dr. Khanna notified and wishes to proceed urgently with procedure. Anesthesia aware. procedure to proceed as scheduled.
--- NOTE | 2023-11-02 13:07 | HO.ANESPROP2 ---
[facility] Active Problems Active Problems: All Active Problems Cardiomyopathy (Acute) Hypertensive urgency (Acute) Atrial fibrillation (Acute) Atrial fibrillation with RVR (Acute) Acute congestive heart failure (Acute) Past Medical History Functional capacity: uses cane/walker Family History Family history of problems with anesthesia: No Surgical History History of Problems with Anesthesia: No Social History Social History Household Members: Children Housing: House Do you presently have visiting nurse or other home services: No Unable to assess alcohol history related to: Unable to respond Patient Tobacco Use Status: Never used Tobacco service: No Meds Allergies Allergy/AdvReac Type Severity Reaction Status Date / Time No Known Allergies Allergy Verified 10/30/23 17:01 Active Medications: Current Medications Acetaminophen (Acetaminophen 325 Mg Tablet) 650 mg PO Q6H PRN PRN Reason: Pain, Mild (Pain Scale 1-3) Amiodarone HCl (Amiodarone Hcl 200 Mg Tablet) 400 mg PO BID [facility] Last Admin: 11/02/23 10:26 Dose: 400 mg Amlodipine Besylate (Amlodipine Besylate 5 Mg Tablet) 5 mg PO DAILY [facility]; Protocol Last Admin: 11/02/23 10:26 Dose: 5 mg Apixaban (Apixaban 5 Mg Tablet) 5 mg PO BID [facility] Last Admin: 11/02/23 07:18 Dose: 5 mg Empagliflozin (Empagliflozin 10 Mg Tablet) 10 mg PO DAILY [facility] Last Admin: 11/02/23 07:18 Dose: 10 mg Furosemide (Furosemide 40 Mg Tablet) 40 mg PO DAILY [facility]; Protocol Last Admin: 11/02/23 07:20 Dose: 40 mg Losartan Potassium (Losartan Potassium 50 Mg Tablet) 50 mg PO BID [facility]; Protocol Last Admin: 11/02/23 07:18 Dose: 50 mg Melatonin (Melatonin 3 Mg Tablet) 6 mg PO BEDTIME PRN PRN Reason: Insomnia Metoprolol Tartrate (Metoprolol Tartrate 50 Mg Tablet) 50 mg PO TID [facility]; Protocol Last Admin: 11/02/23 07:21 Dose: 50 mg Sodium Chloride (0.9 % Sodium Chloride Flush 3 Ml Syringe) 3 ml IVFLUSH QSHIFT [facility] Last Admin: 11/02/23 07:21 Dose: 3 ml Spironolactone (Spironolactone 25 Mg Tablet) 25 mg PO BIDWM [facility]; Protocol Last Admin: 11/02/23 07:18 Dose: 25 mg Home Medications ?Medication ?Instructions ?Recorded ?Confirmed ?Last Taken ?Type No Known Home Meds 10/30/23 10/30/23 Unknown History Exam Height,Weight and Vital Signs: Height 6 ft 1 in Weight 134.4 kg Last Vital Signs Temp 98.6 F 11/02/23 11:27 Pulse 107 H 11/02/23 11:27 Resp 20 11/02/23 11:27 BP 148/96 H 11/02/23 10:26 Pulse Ox 97 11/02/23 11:27 O2 Del Method Room Air 11/02/23 11:27 Pertinent Lab Results Pertinent Lab Results: Laboratory Tests 10/30/23 10/30/23 10/30/23 17:13 17:15 21:49 WBC 8.4 RBC 5.27 Hgb 16.1 Hct 47.3 MCV 89.8 MCH 30.6 MCHC 34.0 RDW 13.5 Plt Count 248 MPV 11.3 Immature Gran % (Auto) 0.7 H Neut % (Auto) 71.8 Lymph % (Auto) 17.3 L Owen % (Auto) 8.9 Eos % (Auto) 0.7 Baso % (Auto) 0.6 Lymph # (Auto) 1.5 Owen # (Auto) 0.7 Eos # (Auto) 0.1 Baso # (Auto) 0.1 Abs Immat Gran (auto) 0.06 H Absolute Neuts (auto) 6.0 Absolute Nucleated RBC 0.000 Nucleated RBC % (auto) 0.0 Hold Blue Top SEE NOTE Sodium 145 Potassium 3.4 Chloride 108 Carbon Dioxide 23 Anion Gap 17 BUN 21 H Creatinine 1.31 Estim Creat Clear Calc 101.3 Estimated GFR 59 Random Glucose 122 H Fasting Glucose Calcium 9.4 Magnesium 2.2 Total Bilirubin 1.0 AST 33 ALT 47 H Alkaline Phosphatase 70 Troponin I High Sens 76.5 H 84.6 H B-Natriuretic Peptide 631 H Total Protein 7.0 Albumin 4.1 Lipase 14 TSH 10/31/23 10/31/23 11/01/23 05:09 14:51 06:08 WBC 8.4 8.2 RBC 5.11 5.29 Hgb 15.8 16.4 Hct 45.9 47.4 MCV 89.8 89.6 MCH 30.9 31.0 MCHC 34.4 34.6 RDW 13.4 13.6 Plt Count 209 218 MPV 11.0 11.0 Immature Gran % (Auto) 0.4 Neut % (Auto) 71.3 Lymph % (Auto) 17.8 L Owen % (Auto) 8.9 Eos % (Auto) 1.0 Baso % (Auto) 0.6 Lymph # (Auto) 1.5 Owen # (Auto) 0.8 Eos # (Auto) 0.1 Baso # (Auto) 0.1 Abs Immat Gran (auto) 0.03 Absolute Neuts (auto) 6.0 Absolute Nucleated RBC 0.000 0.000 Nucleated RBC % (auto) 0.0 0.0 Hold Blue Top Sodium 142 144 Potassium 2.9 L* 3.1 L Chloride 108 109 H Carbon Dioxide 23 22 Anion Gap 14 16 BUN 15 18 H Creatinine 1.04 1.01 Estim Creat Clear Calc 127.6 131.4 Estimated GFR > 60 > 60 Random Glucose 107 Fasting Glucose 98 Calcium 8.9 9.0 Magnesium 2.2 Total Bilirubin AST ALT Alkaline Phosphatase Troponin I High Sens 74.0 H B-Natriuretic Peptide Total Protein Albumin Lipase TSH 1.11 11/01/ 05:22 WBC 10.9 H RBC 5.57 Hgb 17.0 Hct 50.3 MCV 90.3 MCH 30.5 MCHC 33.8 RDW 13.5 Plt Count 232 MPV 11.5 Immature Gran % (Auto) Neut % (Auto) Lymph % (Auto) Owen % (Auto) Eos % (Auto) Baso % (Auto) Lymph # (Auto) Owen # (Auto) Eos # (Auto) Baso # (Auto) Abs Immat Gran (auto) Absolute Neuts (auto) Absolute Nucleated RBC 0.000 Nucleated RBC % (auto) 0.0 Hold Blue Top Sodium 144 Potassium 3.2 L Chloride 107 Carbon Dioxide 24 Anion Gap 16 BUN 25 H Creatinine 1.23 Estim Creat Clear Calc 107.9 Estimated GFR > 60 Random Glucose Fasting Glucose 89 Calcium 9.3 Magnesium 2.1 Total Bilirubin AST ALT Alkaline Phosphatase Troponin I High Sens B-Natriuretic Peptide Total Protein Albumin Lipase TSH Airway Mallampati Class: III TM Dist: >3cm Neck ROM: Full Loose/Missing/Broken Teeth: No Heart: irr rate rhythm Lungs: cta Assessment and Plan Assessment Anesthesia Assessment: Anesthesia Plan Discussed and Chart Reviewed Final Anesthetic Review Family History of Problems with Anesthesia: No History of Problems with Anesthesia: No NPO: Yes ASA Class: III and Emergency Final Preanesthetic Review: No Changes in Pt Med Stat and Meds/Allgs Chart Reviewed Patient Risk: High (pt received jardiance today. zoology technical officer informed and states that case is urgent and needs to proceed and cannot be delayed for the 3 days recommended to hold medication) Procedure Risk: Intermediate Anesthetic Plan Anesthetic Plan: GA (rapid sequence due to ,edication administered) and MAC: Disposition: Standard PACU
[2023-11-02] MEDS: diphenhydrAMINE HCL 50 MG/ML VIAL 25 MG IVPUSH (13:46)
--- NOTE | 2023-11-02 14:25 | PC.NURSE ---
case deemed emergent in Dr. Khanna's cardiology progress note (jardiance given this am- hold x 3 days for anesthesia.
--- NOTE | 2023-11-02 14:37 | P.PNCAR_ITS ---
Cardioversion Procedure Note Cardioversion Date of Procedure: 11/02/2023 Ordering Provider: Brad Khanna Performing Provider: Brad Khanna Indication for Procedure: Afib, cardiomyopathy. CHF Performed with Transesophageal Echo: Yes JOAQUIN findings (if JOAQUIN Performed): No SIRENA thrombus. History: 48 year gentleman presenting for with RVR, congestive heart failure and significantly elevated blood pressure. He has cardiomyopathy. Here for cardi oversion with JOAQUIN. Consent: Verbal and Written consent was obtained from the patient before starting. The patient was made aware of the risk of stroke, skin burn, arrhythmia and failure to achieve sinus rhythm. Procedure: After consent obtained, defib pads were attached and the patient was sedated by the anesthesia team. Once adequate sedation achieved, single 200 joules synchronized shock was given. He converted to sinus rhythm. Complications: No acute complications. Recommendations: Continued guideline directed medical therapy. Amiodarone 400 mg twice a day. Apixaban 5 mg twice a day. We will follow along and advise further changes in medications.
--- NOTE | 2023-11-02 15:25 | MHC.CM.PN ---
EMR reviewed and per MD rounds, pt is not medically cleared for discharge today due to pt being cardioverted today. Anticipating pt will discharge home self-care tomorrow.
[2023-11-03] VITALS (7 sets, daily range): BP systolic 127–152; BP diastolic 89–106; PULSE 71–82; RESP 15–18; TEMP 36.2–36.6; O2SAT 96–100
[2023-11-03 06:36] LABS: Hematocrit 48.9 % (42.0-52.0); Hemoglobin 16.7 g/dl (14.0-18.0); Mean Corpuscular HGB Conc 34.2 g/dl (31.0-36.0); Mean Corpuscular Hemoglobin 30.8 pg (27.0-33.0); Mean Corpuscular Volume 90.2 fL (80.0-98.0); Mean Platelet Volume 11.3 fL (9.4-12.4); Platelet Count 202 X10*3/uL (160-400); Red Blood Count 5.42 X10*6/uL (4.60-5.80); Red Cell Distribution Width 13.5 % (11.0-16.0); White Blood Count 11.8 X10*3/uL (4.8-10.8)
[2023-11-03 06:53] LABS: Anion Gap 14 (12-20); Blood Urea Nitrogen 25 mg/dL (9-16); Calcium 9.1 mg/dL (8.4-10.2); Carbon Dioxide 23 mmol/L (22-29); Chloride 107 mmol/L (96-108); Creatinine Clr Calc Pharmacy 113.4; Estimated Glomerular Filt Rate > 60; Glucose Fasting 88 mg/dL (60-99); Magnesium 2.1 mg/dL (1.6-2.6); Potassium 3.3 mmol/L (3.3-5.1); Sodium 141 mmol/L (135-145)
[2023-11-03] MEDS: Potassium Chloride ER 20 MEQ TAB.ER.PRT 40 MEQ PO (08:04)
[2023-11-03] MEDS: Furosemide 40 MG TABLET PO (08:04)
[2023-11-03] MEDS: Empagliflozin 10 MG TABLET PO (08:05)
[2023-11-03] MEDS: Apixaban 5 MG TABLET PO (08:05)
[2023-11-03] MEDS: Amiodarone HCL 200 MG TABLET 400 MG PO (08:05)
[2023-11-03] MEDS: Losartan Potassium 50 MG TABLET PO (08:05)
[2023-11-03] MEDS: amLODIPine Besylate 5 MG TABLET PO (08:05)
[2023-11-03] MEDS: Spironolactone 25 MG TABLET PO (08:06)
[2023-11-03] MEDS: Metoprolol Tartrate 50 MG TABLET PO (08:06)
[2023-11-03] MEDS: 0.9 % Sodium Chloride Flush 3 ML SYRINGE IVFLUSH (08:07)
--- NOTE | 2023-11-03 10:06 | PM.DS ---
DS: Providers Provider Date of Service: 11/03/23 Date of admission: 10/30/23 20:45 Primary care physician: Alton Bustos MD Consults: 10/30/23 20:50 Consult to Cardiology Routine Consulting Provider: [facility] Reason for consultation: afib with rvr, chf Has provider been notified: Yes DS: Diagnosis Discharge Diagnosis (1) Atrial fibrillation with RVR: Status: Acute (2) Acute congestive heart failure: Status: Acute (3) Cardiomyopathy: Status: Acute DS: Summary Hospital Course Hospital Course: from initial hpi: 48-year-old male with no pertinent past medical history and not on prescription medications who presents to the emergency department for evaluation of dyspnea. Patient states he has been having dyspnea that started 5 days prior to presentation. He had an episode of PND 2 days prior to presentation. Admits orthopnea and dyspnea which is worse with exertion. No history of similar symptoms in the past. Also had an episode of palpitations 2 days ago. Patient went to his PCP today and was asked to come to the ER. No history of irregular heart rhythms or CHF in the past. No history of coronary artery disease. No family history of early CAD. Patient denies fever, chills, chest discomfort, abdominal pain, changes in urinary or bowel habits. hospital course: Patient was admitted for acute systolic CHF. He was given IV Lasix diuresed well. His shortness of breath improved. His echocardiogram showed cardiomyopathy with reduced EF. He was started on maintenance Lasix, Aldactone, metoprolol, losartan, Jardiance. Also noted to be in new onset AFib with RVR. Underwent JOAQUIN and cardioversion successfully. Started on amiodarone load and Eliquis. For hypertension blood pressure improved with addition of medications mentioned above. Patient is feeling better will be discharged home. He should follow up with Cardiology. Should avoid alcohol. Time Attestation Discharge Coordination Time (in mins): 32 Quality: Safe Use of Opioids Does Pt have an Active Cancer Diagnosis on the Problem List?: No Quality: Stroke Does the patient have a stroke diagnosis?: No Physical Exam Vital Signs: Vital Signs: Last Vital Signs Temp 97.6 F 11/03/23 07:40 Pulse 77 11/03/23 08:06 Resp 18 11/03/23 07:40 BP 142/97 H 11/03/23 08:06 Pulse Ox 96 11/03/23 07:40 O2 Del Method Room Air 11/03/23 07:40 O2 Flow Rate 6 11/02/23 14:45 BMI result Body Mass Index 39.1 General: AO X 3, no acute distress Resp: CTA bilateral, no accessory muscles used CVS: S1,S2,RRR GI: soft, non tender, non distended Neuro: motor grossly intact, alert Psych: appropriate affect, appropriate insight DS: Data Data Completed and Pending Labs on day of discharge: Laboratory Results - last 24 hr 11/03/23 05:57 WBC 11.8 H RBC 5.42 Hgb 16.7 Hct 48.9 MCV 90.2 MCH 30.8 MCHC 34.2 RDW 13.5 Plt Count 202 MPV 11.3 Absolute Nucleated RBC 0.000 Nucleated RBC % (auto) 0.0 Sodium 141 Potassium 3.3 Chloride 107 Carbon Dioxide 23 Anion Gap 14 BUN 25 H Creatinine 1.17 Estim Creat Clear Calc 113.4 Estimated GFR > 60 Fasting Glucose 88 Calcium 9.1 Magnesium 2.1 Discharge Plan Discharge Anticipated Discharge Date/Time: 11/03/23 09:58 Patient Disposition: Home, Self-Care Discharge Diagnosis: chf, afib, htn Referrals: Alton Bustos MD [Primary Care Provider] - 1 Week Discharge Medications: New Jardiance 10 mg Tablet 10 mg PO DAILY Qty: 90 0RF losartan 50 mg Tablet 50 mg PO BID Qty: 180 0RF Protocol: Hold for SBP< HOLD for SBP < : 90 amlodipine 5 mg Tablet 5 mg PO DAILY Qty: 90 0RF Protocol: Hold for SBP< HOLD for SBP < : 90 metoprolol tartrate 75 mg tablet 75 mg PO BID Qty: 180 0RF Eliquis 5 mg Tablet 5 mg PO BID Qty: 180 0RF spironolactone 25 mg Tablet 25 mg PO BIDWM Qty: 180 0RF Protocol: Hold for SBP< HOLD for SBP < : 90 furosemide 40 mg Tablet 40 mg PO DAILY Qty: 90 0RF Protocol: Hold for SBP< HOLD for SBP < : 90 amiodarone 200 mg Tablet 400 mg PO BID Qty: 101 0RF Rx Instructions: 2 weeks 400mg bid, then decrease to 200mg daily No Action No Known Home Meds Diet: Low salt diet Activity on Discharge: As tolerated Stand Alone Forms: Patient Portal Discharge page Print Language: Libyan Care Plan Goals: manage chf, afib, htn Health Concerns: afib, chf, htn Plan of Treatment: meds as prescribed, follow up with cardiology, avoid etoh Assessment: see above
--- NOTE | 2023-11-03 11:19 | MHC.CM.PN ---
Patient has been medically cleared for dc to home today, self care.
--- NOTE | 2023-11-03 12:18 | PM.PNCARD ---
Subjective Subjective Date of Service: 11/03/23 Interval history: Seen and examined at bedside. Doing well. Physical Exam Vital Signs: Last Vital Signs Temp 97.1 F 11/03/23 11:54 Pulse 71 11/03/23 11:54 Resp 18 11/03/23 11:54 BP 127/89 11/03/23 11:54 Pulse Ox 99 11/03/23 11:54 O2 Del Method Room Air 11/03/23 11:54 O2 Flow Rate 6 11/02/23 14:45 BMI result Body Mass Index 39.1 GENERAL APPEARANCE: in no acute distress, pleasant. NECK: no carotid bruit, no jugular venous distention. SKIN: no suspicious lesions, warm and dry. HEART: no murmurs, regular rate and rhythm. LUNGS: clear to auscultation bilaterally. ABDOMEN: soft, nontender. EXTREMITIES: no edema. PERIPHERAL PULSES: equal. NEUROLOGIC: No gross deficits, AAO X 3 Objective Labs and Meds 11/03/23 05:57 11/03/23 05:57 Lab results: Laboratory Results - last 24 hr 11/03/23 05:57 WBC 11.8 H RBC 5.42 Hgb 16.7 Hct 48.9 MCV 90.2 MCH 30.8 MCHC 34.2 RDW 13.5 Plt Count 202 MPV 11.3 Absolute Nucleated RBC 0.000 Nucleated RBC % (auto) 0.0 Sodium 141 Potassium 3.3 Chloride 107 Carbon Dioxide 23 Anion Gap 14 BUN 25 H Creatinine 1.17 Estim Creat Clear Calc 113.4 Estimated GFR > 60 Fasting Glucose 88 Calcium 9.1 Magnesium 2.1 Progress Note: A&P Assessment and plan (1) Cardiomyopathy: Status: Acute (2) Atrial fibrillation: Status: Acute (3) Acute congestive heart failure: Status: Acute (4) Atrial fibrillation with RVR: Status: Acute Plan 48-year-old gentleman presenting with shortness of breath and congestive heart failure. He has severe cardiomyopathy, has new onset atrial fibrillation with rapid ventricular response and has uncontrolled hypertension. Blood pressure is improving. Continue same medications. s/p cardioversion. c/w amiodarone 400 mg BID x 2 weeks, after that 200 mg daily. Lasix 40 mg PO daily. Will arrange EP eval as outpatient for ablation. Discussed with him about complete abstinence from alcohol. Thank you for allowing me to participate in the care of your patient. Please feel free to contact me if you have any questions. Time Spent With Patient Time: Total time managing care of this patient today ____ minutes. Progress Note: Quality Stroke Does the patient have a stroke diagnosis?: No Procedures Date of Service Date of Service: 11/03/23
--- NOTE | 2023-11-03 15:42 | HO.POSTANES ---
Post Anesthesia Evaluation Post Anesthesia Evaluation Date of Service: 11/03/23 Vital Signs: Vital Signs Temp Pulse Resp BP Pulse Ox O2 Del Method 11/03/23 11:54 97.1 F 71 18 127/89 99 Room Air 11/03/23 11:54 99 11/03/23 08:06 77 142/97 H 11/03/23 08:06 142/97 H 11/03/23 08:05 142/97 H 11/03/23 08:05 142/97 H 11/03/23 08:04 142/97 H 11/03/23 07:40 97.6 F 77 18 142/97 H 96 Room Air 11/03/23 04:00 97.5 F 82 15 152/101 H 96 Room Air Anesthesia: TIVA Mental Status: Awake Pain Control: Satisfactory Nausea/Vomiting: None Hydration: Adequate Anesthesia-Related Issues: No Anes. Related Issues
== END 2023-11-03 12:18 | disposition home or self-care (01) | DRG 201 ==
LOC: HO.ED 21:15 → HO.EDOVER 21:19 → HO.IMC 11-02 05:52
PROVIDERS: Internal Medicine Cardiovascular Disease; Physician Assistant Medical; Admitting Provider Student in an Organized Health Care Education/Training Program; Emergency Provider Emergency Medicine; PCP Internal Medicine; Visit Provider Internal Medicine
PROC: 5A2204Z Restoration of Cardiac Rhythm, Single (ICD-10-PCS; CPT 93312; principal; 2023-11-02 14:00)
PROC: 5A2204Z Restoration of Cardiac Rhythm, Single (ICD-10-PCS; 2023-11-02 14:00)
DX: I48.91 Unspecified atrial fibrillation (principal); I50.21 Acute systolic (congestive) heart failure; I16.0 Hypertensive urgency; I11.0 Hypertensive heart disease with heart failure; E87.6 Hypokalemia; I42.9 Cardiomyopathy, unspecified; Z91.199 Patient's noncompliance with other medical treatment and regimen due to unspecified reason
CPT/HCPCS: 36415; 71046; 80048; 80053; 83690; 83735; 83880; 84443; 84484; 85025; 85027; 92960; 93005; 93306; 99285; J1200; J1940; J2250; J2704; Q9957

== ENCOUNTER → 2023-10-30 17:44 | Outpatient (BNV) | payer BC, SELFPAY | PROVIDERS: Emergency Provider Emergency Medicine; PCP Internal Medicine; Visit Provider Student in an Organized Health Care Education/Training Program | DX: I48.91 Unspecified atrial fibrillation (principal); I50.21 Acute systolic (congestive) heart failure; I42.9 Cardiomyopathy, unspecified | CPT/HCPCS: 99223; 99232; 99239 ==

== ENCOUNTER 2023-10-30 20:45 | Outpatient (BNV) | payer BC, SELFPAY | END 2023-10-31 07:00 | PROVIDERS: Admitting Provider Student in an Organized Health Care Education/Training Program; Emergency Provider Emergency Medicine; PCP Internal Medicine; Visit Provider Internal Medicine Cardiovascular Disease | DX: I50.20 Unspecified systolic (congestive) heart failure (principal) | CPT/HCPCS: 93306 ==

== ENCOUNTER 2023-10-30 20:45 | Outpatient (BNV) | payer BC, SELFPAY | END 2023-11-02 07:00 | PROVIDERS: Admitting Provider Student in an Organized Health Care Education/Training Program; Emergency Provider Emergency Medicine; PCP Internal Medicine; Visit Provider Internal Medicine Cardiovascular Disease | DX: I48.91 Unspecified atrial fibrillation (principal); R93.1 Abnormal findings on diagnostic imaging of heart and coronary circulation; I49.3 Ventricular premature depolarization | CPT/HCPCS: 93010; 93312 ==

== ENCOUNTER → 2023-10-30 20:45 | Outpatient (BNV) | payer BC, SELFPAY | PROVIDERS: Admitting Provider Student in an Organized Health Care Education/Training Program; Emergency Provider Emergency Medicine; PCP Internal Medicine; Visit Provider Internal Medicine Cardiovascular Disease | DX: I48.91 Unspecified atrial fibrillation (principal); I50.9 Heart failure, unspecified; I42.9 Cardiomyopathy, unspecified | CPT/HCPCS: 92960; 93010; 99223; 99233 ==

== ENCOUNTER 2023-11-14 15:43 | Outpatient (REF) | payer BC, SELFPAY ==
[2023-11-14 15:53] LABS: MANUAL DIFF FLAG NO
[2023-11-14 17:23] LABS: Basophils Percent Auto 0.7 % (0-2); Eosinophils Absolute Auto 0.1 X10*3/uL (0.0-0.4); Eosinophils Percent Auto 1.7 % (0-4); Hematocrit 46.7 % (42.0-52.0); Hemoglobin 15.9 g/dl (14.0-18.0); Imm Gran Abs Auto 0.02 X10*3/uL (0.00-0.03); Imm Gran Pct Auto 0.3 % (0.0-0.4); Lymphocytes Absolute Auto 1.3 X10*3/uL (1.2-4.9); Mean Corpuscular Hemoglobin 30.9 pg (27.0-33.0); Mean Corpuscular Volume 90.7 fL (80.0-98.0); Mean Platelet Volume 11.7 fL (9.4-12.4); Monocytes Absolute Auto 0.6 X10*3/uL (0.1-1.2); Monocytes Percent Auto 10.6 % (2-11); Neutrophils Percent Auto 65.7 % (45-73); Platelet Count 306 X10*3/uL (160-400); Red Blood Count 5.15 X10*6/uL (4.60-5.80)
[2023-11-14 17:57] LABS: Alanine Aminotransferase 31 U/L (0-40); Albumin Level 4.3 g/dL (3.5-5.0); Alkaline Phosphatase 66 U/L (39-117); Anion Gap 17 (12-20); Aspartate Amino Transferase 16 U/L (5-37); Bilirubin Total 0.6 mg/dL (0.0-1.0); Blood Urea Nitrogen 40 mg/dL (9-16); Calcium 9.5 mg/dL (8.4-10.2); Carbon Dioxide 20 mmol/L (22-29); Chloride 108 mmol/L (96-108); Estimated Glomerular Filt Rate 49; Glucose Random 91 mg/dL (60-115); Magnesium 2.4 mg/dL (1.6-2.6); Potassium 3.9 mmol/L (3.3-5.1); Sodium 141 mmol/L (135-145); Total Protein 7.3 g/dL (6.5-8.0)
== END 2023-11-14 15:44 | disposition home or self-care (01) ==
LOC: HO.LAB 15:43
PROVIDERS: PCP Internal Medicine; Visit Provider Internal Medicine
DX: I50.9 Heart failure, unspecified (principal); I42.9 Cardiomyopathy, unspecified; I48.0 Paroxysmal atrial fibrillation
CPT/HCPCS: 36415; 80053; 83735; 85025

== ENCOUNTER 2024-01-14 14:31 | Outpatient (REF) | payer BC, SELFPAY ==
[2024-01-14 14:45] LABS: MANUAL DIFF FLAG NO
[2024-01-14 15:12] LABS: Basophils Absolute Auto 0.1 X10*3/uL (0.0-0.2); Basophils Percent Auto 0.8 % (0-2); Eosinophils Absolute Auto 0.2 X10*3/uL (0.0-0.4); Hematocrit 45.4 % (42.0-52.0); Hemoglobin 15.1 g/dl (14.0-18.0); Imm Gran Abs Auto 0.12 X10*3/uL (0.00-0.03); Imm Gran Pct Auto 1.4 % (0.0-0.4); Lymphocytes Absolute Auto 2.1 X10*3/uL (1.2-4.9); Lymphocytes Percent Auto 24.5 % (20-40); Mean Corpuscular HGB Conc 33.3 g/dl (31.0-36.0); Mean Corpuscular Hemoglobin 30.3 pg (27.0-33.0); Mean Platelet Volume 10.2 fL (9.4-12.4); Monocytes Absolute Auto 0.6 X10*3/uL (0.1-1.2); Monocytes Percent Auto 7.4 % (2-11); Neutrophils Absolute Auto 5.6 x10*3/uL (2.0-8.3); Neutrophils Percent Auto 63.9 % (45-73); Platelet Count 294 X10*3/uL (160-400); Red Blood Count 4.99 X10*6/uL (4.60-5.80); Red Cell Distribution Width 13.9 % (11.0-16.0); White Blood Count 8.7 X10*3/uL (4.8-10.8)
[2024-01-14 15:34] LABS: Alanine Aminotransferase 20 U/L (0-40); Albumin Level 4.5 g/dL (3.5-5.0); Alkaline Phosphatase 65 U/L (39-117); Anion Gap 13 (12-20); Aspartate Amino Transferase 17 U/L (5-37); Bilirubin Total 0.5 mg/dL (0.0-1.0); Blood Urea Nitrogen 43 mg/dL (9-16); Carbon Dioxide 26 mmol/L (22-29); Chloride 107 mmol/L (96-108); Estimated Glomerular Filt Rate 37; Glucose Random 92 mg/dL (60-115); Magnesium 2.1 mg/dL (1.6-2.6); Potassium 4.5 mmol/L (3.3-5.1); Sodium 141 mmol/L (135-145); Total Protein 7.7 g/dL (6.5-8.0)
== END 2024-01-14 14:32 | disposition home or self-care (01) ==
LOC: HO.LAB 14:31
PROVIDERS: PCP Internal Medicine; Visit Provider Internal Medicine
DX: I50.9 Heart failure, unspecified (principal); I48.0 Paroxysmal atrial fibrillation; I42.9 Cardiomyopathy, unspecified
CPT/HCPCS: 36415; 80053; 83735; 85025

== ENCOUNTER → 2024-01-22 08:07 | Outpatient (REF) | payer BC, SELFPAY ==
--- NOTE | 2024-01-22 08:09 | CA_ITS ---
Transthoracic Echocardiogram Patient (Last, First, Middle): Wellington Salinas W Gender: Male Date of : 1975 Age: 48 Procedure Date: 01/22/2024 Procedure Type: Transthoracic Echocardiogram Location: OP Height: 185.42 cm Weight: 127.01 kg BSA: 2.48 m2 Heart Rate: 53 bpm BP: 142 / 100 mmHg Freight Brake Operator: [email or web address] Carrillo MD: Brad Khanna MD Professional Tutor: Brad Khanna MD Symptoms: I48.91 - Unspecified atrial fibrillation Study Quality: Adequate, Limited per order ECG Rhythm: Bradycardia Conclusions: - Normal left ventricular cavity size. There is moderately increased left ventricular wall thickness. The left ventricular systolic function is low normal. The visually estimated ejection fraction is between 50-55%. - The basal inferior segment is akinetic. Findings Left Ventricle Normal left ventricular cavity size. There is moderately increased left ventricular wall thickness. The left ventricular systolic function is low normal. The visually estimated ejection fraction is between 50-55%. There is evidence of regional wall motion abnormalities. Diastolic function is indeterminate on the basis of available data. Wall Motion Rest Echo Findings The basal inferior segment is akinetic. Venous The inferior vena cava is normal in size and collapses greater than 50% with inspiration. Pericardium/Pleural There is no evidence of pericardial effusion. Prior Study Comparison Changes noted compared to prior study dated: 11/02/2023. EF 50-55%, basal inferior akinesis. Measurements 2D Linear Measurements IVSd: 1.32 0.6-0.9/0.6-1.0 cm LVIDd: 5.28 3.9-5.3/4.2-5.9 cm LVIDd Index: 2.13 2.4-3.2/2.2-3.1 cm/m2 LVIDs: 3.56 2.0-3.6 cm LVPWd: 1.38 0.7-1.1 cm LV Mass: 375.41 67-162/88-224 g LV Mass Index: 151.38 43-95/49-115 g/m2 LVOT Diam: 2.60 3.0+(-)1.3 cm 2D Systolic Function EF 4C: 56.90 >55% EF 2C: 61.00 >55% EF BiP: 58.40 >55% LVOT LVOT Pk Bradley: 0.84 LVOT Mn Bradley: 0.55 LVOT VTI: 0.20 LVOT Pk Grad: 3.00 LVOT Mn Grad: 1.00 LVOT Diam: 2.60 LVOT Area: 5.31 Updated in Other Vendor System with Status of Final Brad Khanna MD electronically signed on 01/23/2024 8:38:36 PM with status of Final
== END ==
LOC: HO.CARD 08:07
PROVIDERS: PCP Internal Medicine; Visit Provider Internal Medicine Cardiovascular Disease
DX: I48.91 Unspecified atrial fibrillation (principal)
CPT/HCPCS: 93308

== ENCOUNTER → 2024-01-22 08:09 | Outpatient (BNV) | payer BC, SELFPAY | PROVIDERS: PCP Internal Medicine; Visit Provider Internal Medicine Cardiovascular Disease | DX: I48.91 Unspecified atrial fibrillation (principal); I51.89 Other ill-defined heart diseases | CPT/HCPCS: 93308 ==

== ENCOUNTER 2024-01-23 15:27 | Outpatient (AMB) | payer BC, SELFPAY ==
[2024-01-23 15:30] VITALS: BP 130/70; PULSE 55; BMI 38.7
--- NOTE | 2024-01-23 15:30 | A.OFFVIS_ITS ---
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 He was seen in 10/29/2023 at [facility] when he presented with congestive heart failure new onset atrial fibrillation with rapid ventricular response. His EF by echocardiography was severely reduced. 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 He was started on guideline directed medical therapy including Jardiance, losartan and metoprolol tartrate and spironolactone. His blood pressure was significantly elevated. He was also drinking alcohol at that time. 01/23/2024: He is returning for follow-up today. He has been doing exceptionally well. No chest discomfort or significant shortness of breath. No orthopnea or PND. He had blood workup done on January 13 and saw his primary care physician and his Lasix was stopped and he was advised to decrease the spironolactone to 25 mg once a day. It appears he had a kidney injury on the blood workup. He is saying he has been hydrating himself but was spending some time in the sun exer cising and biking. Otherwise doing well. No other concerns. [facility] Social History Household Members: Children Housing: House Do you presently have visiting nurse or other home services: No Unable to assess alcohol history related to: Unable to respond Patient Tobacco Use Status: Never used Tobacco service: No Review of Systems Const Denies chills, Denies fatigue, Denies fever(s), Denies frequent falls, Denies weakness, Denies weight gain and Denies weight loss ENT Denies dizziness Card Denies chest pain, Denies leg edema, Denies lightheadedness, Denies palpitations, Denies dyspnea and Denies dyspnea on exertion Resp Denies cough, Denies dyspnea and Denies dyspnea on exertion GI Denies hematochezia Musc Denies abnormal gait, Denies muscle weakness, Denies numbness, Denies radiating pain into limb and Denies tingling Neuro Denies abnormal gait, Denies dizziness, Denies frequent falls, Denies numbness, Denies tingling and Denies weakness Endo Denies fatigue and Denies palpitations Physical Exam Vital Signs: Last Vital Signs Pulse 55 01/23/24 15:30 BP 130/70 01/23/24 15:30 BMI result Body Mass Index 38.7 GENERAL APPEARANCE: in no acute distress, pleasant. NECK: no carotid bruit, no jugular venous distention. SKIN: no suspicious lesions, warm and dry. HEART: no murmurs, regular rate and rhythm. LUNGS: clear to auscultation bilaterally. ABDOMEN: soft, nontender. EXTREMITIES: no edema. PERIPHERAL PULSES: equal. NEUROLOGIC: No gross deficits, AAO X 3 Office Procedures EKG Details: Sinus bradycardia 55 beats per minute, first-degree AV block with AL interval 220 milliseconds, left posterior fascicular block, poor R-wave progression and can not rule out anterior infarct, QTC 443 milliseconds. [id number], Complete Assessment & Plan Assessment & Plan (1) Cardiomyopathy: Code(s): I42.9 - Cardiomyopathy, unspecified Category: Medical (2) Atrial fibrillation: Code(s): I48.91 - Unspecified atrial fibrillation Category: Medical Plan [age] year gentleman with recent admission to [facility] with congestive heart failure in the setting of AFib with RVR. He was significantly hypertensive as well as drinking alcohol. He was cardioverted and started on amiodarone and apixaban. He also was started on guideline directed medical therapy. He had repeat echocardiography done yesterday which is showing normalization of his left ventricular function. Interestingly he had blood workup done on January 13 which showed acute kidney injury and was advised to stop the furosemide and to cut the spironolactone to 25 mg once a day from b.i.d.. He continues to take losartan 50 mg twice a day. Given significant kidney injury I have advised him to hold the losartan also for now. He will continue to hydrate himself till Sunday and repeat blood workup on that day. He will wait for our office to call him before resuming losartan. If kidney function does not recover then I would refer him to Nephrology for fur ther assessment. He can not stay on amiodarone for long-term due to young age and risk of toxicity with long-term use. I am referring him to electrophysiology for ablation for atrial fibrillation. Follow-up with us in 3 months. Thank you for allowing me to participate in the care of your patient. Please feel free to contact me if you have any questions. Orders: Orders Basic Metabolic Panel Today I42.9 - Cardiomyopathy, unspecified B Type Natriuretic Peptide Today I42.9 - Cardiomyopathy, unspecified Referrals Cardiology Referral I48.91 - Unspecified atrial fibrillation Medications: Changed From spironolactone 25 mg See Protocol PO ONCE To spironolactone 25 mg See Protocol PO DAILY On Hold furosemide Hold Comment: Doctor's Order 40 mg See Protocol PO DAILY 90 tabs 3RF losartan Hold Comment: Doctor's Order 50 mg See Protocol PO BID 180 tabs 3RF Coding Level of Care Code Est Pt Level 5 (41109) Diagnoses Cardiomyopathy I42.9 Atrial fibrillation I48.91 CPT Codes EKG - CPT: 17729-[id number], Complete ([id number])
== END 2024-01-23 15:59 | disposition home or self-care (01) ==
PROVIDERS: PCP Internal Medicine; Visit Provider Internal Medicine Cardiovascular Disease
DX: I42.9 Cardiomyopathy, unspecified (principal); I48.91 Unspecified atrial fibrillation; R00.1 Bradycardia, unspecified
CPT/HCPCS: 93010; 99214

== ENCOUNTER → 2024-01-23 15:27 | Outpatient (BNVA) | payer BC, SELFPAY | PROVIDERS: PCP Internal Medicine; Visit Provider Internal Medicine Cardiovascular Disease | DX: I42.9 Cardiomyopathy, unspecified (principal); I48.91 Unspecified atrial fibrillation; Z79.899 Other long term (current) drug therapy | CPT/HCPCS: 93005 ==

== ENCOUNTER 2024-01-28 10:27 | Outpatient (REF) | payer BC, SELFPAY ==
[2024-01-28 11:17] LABS: B Type Natriuretic Peptide 96 pg/mL (<100)
[2024-01-28 11:25] LABS: Anion Gap 12 (12-20); Blood Urea Nitrogen 25 mg/dL (9-16); Calcium 9.3 mg/dL (8.4-10.2); Carbon Dioxide 24 mmol/L (22-29); Chloride 106 mmol/L (96-108); Estimated Glomerular Filt Rate 50; Glucose Random 97 mg/dL (60-115); Sodium 138 mmol/L (135-145)
== END 2024-01-28 10:28 | disposition home or self-care (01) ==
LOC: HO.LAB 10:27
PROVIDERS: PCP Internal Medicine; Visit Provider Internal Medicine Cardiovascular Disease
DX: I42.9 Cardiomyopathy, unspecified (principal)
CPT/HCPCS: 36415; 80048; 83880

== ENCOUNTER 2024-01-31 14:13 | Outpatient (REF) | payer BC, SELFPAY ==
[2024-01-31 15:00] LABS: Anion Gap 10 (12-20); Blood Urea Nitrogen 28 mg/dL (9-16); Calcium 9.3 mg/dL (8.4-10.2); Carbon Dioxide 27 mmol/L (22-29); Chloride 106 mmol/L (96-108); Estimated Glomerular Filt Rate 50; Glucose Random 99 mg/dL (60-115); Potassium 4.3 mmol/L (3.3-5.1); Sodium 139 mmol/L (135-145)
== END 2024-01-31 14:14 | disposition home or self-care (01) ==
LOC: HO.LAB 14:13
PROVIDERS: PCP Internal Medicine; Visit Provider Internal Medicine
DX: I48.91 Unspecified atrial fibrillation (principal); I10 Essential (primary) hypertension
CPT/HCPCS: 36415; 80048

== ENCOUNTER 2024-02-28 10:34 | Outpatient (AMB) | payer BC, SELFPAY ==
[2024-02-28 10:36] VITALS: BP 142/100; PULSE 78; O2SAT 98; BMI 38.5
--- NOTE | 2024-02-28 10:36 | HO.NEPHOV ---
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 Recently he developed shortness of breath and was found to have atrial fibrillation and congestive heart failure. He is currently on amiodarone and antihypertensive medications have been added. He was on losartan on Lasix and amlodipine. Baseline creatinine was less than 1.0. Recently creatinine bumped up to 1.9 2 months ago. The recent creatinine was 1.56 and therefore losartan and furosemide has been placed on hold. He has been referred for further evaluation of renal insufficiency. No urinalysis available. History of alcohol intake in the past. Does not consume any alcohol at present. 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 He is younger brother also has hypertension. [facility] Social History Household Members: Children Housing: House Do you presently have visiting nurse or other home services: No Unable to assess alcohol history related to: Unable to respond Patient Tobacco Use Status: Never used Tobacco service: No Review of Systems Const Denies fever(s) and Denies weight loss Card Denies chest pain Resp Denies cough and Denies hemoptysis GI Denies abdominal pain, Denies diarrhea and Denies nausea Musc Denies back pain Neuro Denies focal weakness Physical Exam Vital Signs: Last Vital Signs Pulse 78 02/28/24 10:36 BP 142/100 H 02/28/24 10:36 Pulse Ox 98 02/28/24 10:36 Oxygen Delivery Method Room Air 02/28/24 10:36 BMI result Body Mass Index 38.5 Const General: comfortable; No acute distress Orientation/consciousness: patient oriented x3 Eyes General: appearance normal, both eyes and all related structures Visual Raman: normal visual raman by confrontation Neck Neck: Yes supple and Yes no JVD Resp Effort & Inspection: normal respiratory effort and respiratory effort not decreased Auscultation: rhonchi Cardio Palpation: no palpable S3 and no palpable S4 Heart sounds: no rubs GI Inspection: Yes normal to inspection Palpation (GI): Soft to palpation Percussion: Yes normal to percussion Auscultation: normal bowel sounds General: Yes no CVA tenderness Back/Spine/Pelvis Back: no CVA tenderness Skin General skin exam: no petechiae and no purpura Neuro General: patient oriented x3 and no focal motor deficits Extrem General: No clubbing and No edema Results Reviewed Nephrology Results: Hgb 15.1 g/dl (14.0-18.0) 01/14/24 WBC 8.7 X10*3/uL (4.8-10.8) 01/14/24 Plt Count 294 X10*3/uL (160-400) 01/14/24 Sodium 139 mmol/L (135-145) 02/28/24 Potassium 4.1 mmol/L (3.3-5.1) 02/28/24 Chloride 106 mmol/L (96-108) 02/28/24 Carbon Dioxide 25 mmol/L (22-29) 02/28/24 BUN 20 mg/dL (9-16) H 02/28/24 Creatinine 1.33 mg/dL (0.5-1.4) 02/28/24 Calcium 9.5 mg/dL (8.4-10.2) 02/28/24 Urine Protein Negative mg/dL (Neg-Trace) 02/28/24 Urine Creatinine 161.48 mg/dL 02/28/24 Assessment & Plan Assessment & Plan (1) LUPILLO (acute kidney injury): Code(s): N17.9 - Acute kidney failure, unspecified Category: Medical Plan 48-year-old man with atrial fibrillation and congestive heart failure in the setting of alcohol use in the past sustained acute kidney injury. Acute kidney injury is mostly due to hypoperfusion. He was on high dose of diuretics along with ARB which could have contributed. However underlying glomerular nephritis and obstructive uropathy should be ruled out. Agree with holding losartan and Lasix. I will recheck renal panel today since he has been off these 2 medications for last 2 weeks. In the meantime we will continue the other medication. Continue overt nephrotoxic agents. Check urinalysis along with a urine protein creatinine ratio. Obtain renal ultrasonogram to assess echogenicity and to rule out hydronephrosis. Goal is to optimize blood pressure and avoid hypotension. Concur with other medical management and further workup will be based on the outcome of the above investigations. Orders: Orders Basic Metabolic Panel Today N17.9 - Acute kidney failure, unspecified US renal BI Today N17.9 - Acute kidney failure, unspecified Creatinine Urine Today N17.9 - Acute kidney failure, unspecified Total Protein Urine Random Today N17.9 - Acute kidney failure, unspecified UA and rflx microscopic Today N17.9 - Acute kidney failure, unspecified Medications: Changed From amlodipine 5 mg See Protocol PO DAILY 90 tabs 3RF To amlodipine 10 mg See Protocol PO DAILY 90 tabs 3RF Coding Level of Care Code New Pt Level 4 (77091) Diagnoses LUPILLO (acute kidney injury) N17.9
== END 2024-02-28 11:09 | disposition home or self-care (01) ==
PROVIDERS: PCP Internal Medicine; Visit Provider Internal Medicine Hypertension Specialist
DX: N17.9 Acute kidney failure, unspecified (principal)
CPT/HCPCS: 99204

== ENCOUNTER 2024-02-28 10:34 | Outpatient (REF) | payer BC, SELFPAY ==
[2024-02-28 12:05] LABS: Appearance Urine Clear; Color Urine Yellow; Glucose Urine UA >=1000 mg/dL (Negative); Leukocyte Esterase Urine Negative (Negative); Nitrite Urine Negative (Negative); PH 5.5 (5.0-9.0); Specific Gravity - Urine 1.025 (1.005-1.025); UMIC TRIGGER UA YES; Urine Blood Negative (Negative); Urine Ketones Negative (Negative); Urine Protein Negative (Neg-Trace)
[2024-02-28 12:12] LABS: Bacteria Urine None Seen (None Seen); Hyaline Casts Urine 0-2 /LPF (0-2); RBC Urine 0-2 /HPF (0-2); Squamous Epithelial Cell Urine 0-2 /HPF (0-2); WBC Urine 0-5 /HPF (0-5)
[2024-02-28 12:49] LABS: Anion Gap 12 (12-20); Blood Urea Nitrogen 20 mg/dL (9-16); Calcium 9.5 mg/dL (8.4-10.2); Carbon Dioxide 25 mmol/L (22-29); Chloride 106 mmol/L (96-108); Estimated Glomerular Filt Rate 58; Glucose Random 111 mg/dL (60-115); Potassium 4.1 mmol/L (3.3-5.1); Sodium 139 mmol/L (135-145)
[2024-02-28 12:53] LABS: Creatinine Urine 161.48 mg/dL; Total Protein Urine Random 14 mg/dL (<12)
== END 2024-02-28 10:35 | disposition home or self-care (01) ==
LOC: HO.LAB 10:34
PROVIDERS: PCP Internal Medicine; Visit Provider Internal Medicine Hypertension Specialist
DX: N17.9 Acute kidney failure, unspecified (principal); I48.91 Unspecified atrial fibrillation; I50.9 Heart failure, unspecified; Z79.899 Other long term (current) drug therapy
CPT/HCPCS: 36415; 80048; 81001; 81003; 82570; 84156

== ENCOUNTER 2024-03-11 14:53 | Outpatient (REF) | payer BC, SELFPAY ==
--- NOTE | ~2024-03-11 | US_ITS ---
EXAMINATION: US RETROPERITONEAL LIMITED (RENAL ONLY) CLINICAL INFORMATION: Acute kidney failure, unspecified. COMPARISON: None available. TECHNIQUE: Real-time imaging of the kidneys. Technically difficult study secondary to body habitus. FINDINGS: RIGHT KIDNEY: 11.2 x 6.4 x 6.0 cm (SAG x AP x TRV). The kidney is normal in size, contour, and echogenicity. Renal cortical thickness is normal. No calculi or focal parenchymal lesions. No hydronephrosis. LEFT KIDNEY: 11.8 x 6.4 x 5.0 cm (SAG x AP x TRV). The kidney is normal in size, contour, and echogenicity. Renal cortical thickness is normal. No calculi or focal parenchymal lesions. No hydronephrosis. US/US renal BI IMPRESSION: Normal-appearing kidneys. Electronically signed by: John Cheney MD 04/24/2024 11:51 AM EST
== END 2024-03-11 14:54 | disposition home or self-care (01) ==
LOC: HO.US 14:53
PROVIDERS: PCP Internal Medicine; Visit Provider Internal Medicine Hypertension Specialist
DX: N17.9 Acute kidney failure, unspecified (principal)
CPT/HCPCS: 76775

== ENCOUNTER 2024-03-20 15:39 | Outpatient (AMB) | payer BC, SELFPAY ==
[2024-03-20 15:41] VITALS: BP 142/90; PULSE 62; O2SAT 97; BMI 39.3
--- NOTE | 2024-03-20 15:41 | HO.NEPHOV ---
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 Recently he developed shortness of breath and was found to have atrial fibrillation and congestive heart failure. He is currently on amiodarone and antihypertensive medications have been added. He was on losartan on Lasix and amlodipine. Baseline creatinine was less than 1.0. Recently creatinine bumped up to 1.9 2 months ago. The recent creatinine was 1.56 and therefore losartan and furosemide has been placed on hold. He has been referred for further evaluation of renal insufficiency. No urinalysis available. History of alcohol intake in the past. Does not consume any alcohol at present. 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 He is younger brother also has hypertension. 03/20/24 Doing Trying to lose weight [facility] Social History Household Members: Children Housing: House Do you presently have visiting nurse or other home services: No Unable to assess alcohol history related to: Unable to respond Patient Tobacco Use Status: Never used Tobacco service: No Physical Exam Vital Signs: Last Vital Signs Pulse 62 03/20/24 15:41 BP 140/90 H 03/20/24 15:54 Pulse Ox 97 03/20/24 15:41 Oxygen Delivery Method Room Air 03/20/24 15:41 BMI result Body Mass Index 39.3 Results Reviewed Nephrology Results: Hgb 15.1 g/dl (14.0-18.0) 01/14/24 WBC 8.7 X10*3/uL (4.8-10.8) 01/14/24 Plt Count 294 X10*3/uL (160-400) 01/14/24 Sodium 139 mmol/L (135-145) 02/28/24 Potassium 4.1 mmol/L (3.3-5.1) 02/28/24 Chloride 106 mmol/L (96-108) 02/28/24 Carbon Dioxide 25 mmol/L (22-29) 02/28/24 BUN 20 mg/dL (9-16) H 02/28/24 Creatinine 1.33 mg/dL (0.5-1.4) 02/28/24 Calcium 9.5 mg/dL (8.4-10.2) 02/28/24 Urine Protein Negative mg/dL (Neg-Trace) 02/28/24 Urine Creatinine 161.48 mg/dL 02/28/24 Renal US 03/11/24 Assessment & Plan Assessment & Plan (1) LUPILLO (acute kidney injury): Code(s): N17.9 - Acute kidney failure, unspecified Category: Medical (2) HTN (hypertension): Code(s): I10 - Essential (primary) hypertension Category: Medical Plan 48-year-old man with atrial fibrillation and congestive heart failure in the setting of alcohol use in the past sustained acute kidney injury. Acute kidney injury is mostly due to hypoperfusion. He was on high dose of diuretics along with ARB which could have contributed. glomerular nephritis and obstructive uropathy were ruled out Agree with holding losartan and Lasix. Continue to avoid nephrotoxic agents. Discused weight loss Stay on low salt diet Goal is to optimize blood pressure and avoid hypotension. Orders: Orders Basic Metabolic Panel 20 Days I10 - Essential (primary) hypertension, N17.9 - Acute kidney failure, unspecified Coding Level of Care Code Est Pt Level 4 (65782) Diagnoses LUPILLO (acute kidney injury) N17.9 HTN (hypertension) I10
[2024-03-20 15:54] VITALS: BP 140/90
== END 2024-03-20 16:00 | disposition home or self-care (01) ==
PROVIDERS: PCP Internal Medicine; Visit Provider Internal Medicine Hypertension Specialist
DX: N17.9 Acute kidney failure, unspecified (principal); I10 Essential (primary) hypertension
CPT/HCPCS: 99214

== ENCOUNTER → 2024-03-20 15:39 | Outpatient (BNVA) | payer BC, SELFPAY | PROVIDERS: PCP Internal Medicine; Visit Provider Internal Medicine Hypertension Specialist ==

== ENCOUNTER 2024-04-24 14:39 | Outpatient (REF) | payer BC, SELFPAY ==
[2024-04-24 14:52] LABS: MANUAL DIFF FLAG NO
[2024-04-24 15:04] LABS: Basophils Absolute Auto 0.1 X10*3/uL (0.0-0.2); Basophils Percent Auto 0.6 % (0-2); Eosinophils Absolute Auto 0.1 X10*3/uL (0.0-0.4); Eosinophils Percent Auto 1.5 % (0-4); Hematocrit 47.9 % (42.0-52.0); Hemoglobin 16.3 g/dl (14.0-18.0); Imm Gran Abs Auto 0.05 X10*3/uL (0.00-0.03); Imm Gran Pct Auto 0.6 % (0.0-0.4); Lymphocytes Absolute Auto 1.8 X10*3/uL (1.2-4.9); Lymphocytes Percent Auto 20.9 % (20-40); Mean Corpuscular Hemoglobin 31.1 pg (27.0-33.0); Mean Corpuscular Volume 91.4 fL (80.0-98.0); Mean Platelet Volume 9.7 fL (9.4-12.4); Monocytes Absolute Auto 0.8 X10*3/uL (0.1-1.2); Monocytes Percent Auto 9.9 % (2-11); Neutrophils Absolute Auto 5.6 x10*3/uL (2.0-8.3); Neutrophils Percent Auto 66.5 % (45-73); Platelet Count 275 X10*3/uL (160-400); Red Blood Count 5.24 X10*6/uL (4.60-5.80); Red Cell Distribution Width 12.8 % (11.0-16.0); White Blood Count 8.5 X10*3/uL (4.8-10.8)
[2024-04-24 16:52] LABS: Anion Gap 10 (12-20); Blood Urea Nitrogen 23 mg/dL (9-16); Calcium 9.3 mg/dL (8.4-10.2); Carbon Dioxide 26 mmol/L (22-29); Chloride 106 mmol/L (96-108); Estimated Glomerular Filt Rate 48; Glucose Random 99 mg/dL (60-115); Potassium 4.1 mmol/L (3.3-5.1); Sodium 138 mmol/L (135-145); Thyroid Stimulating Hormone 1.42 uIU/mL (0.32-4.0)
== END 2024-04-24 14:40 | disposition home or self-care (01) ==
LOC: HO.LAB 14:39
PROVIDERS: PCP Internal Medicine; Visit Provider Internal Medicine
DX: I10 Essential (primary) hypertension (principal); N18.9 Chronic kidney disease, unspecified
CPT/HCPCS: 36415; 80048; 84443; 85025

== ENCOUNTER 2024-05-19 15:10 | Outpatient (AMB) | payer BC, SELFPAY ==
[2024-05-19 15:15] VITALS: BP 120/80; PULSE 59; BMI 40.3
--- NOTE | 2024-05-19 15:15 | MHC.OFFVIS ---
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 He was seen in 10/29/2023 at [facility] when he presented with congestive heart failure new onset atrial fibrillation with rapid ventricular response. His EF by echocardiography was severely reduced. 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 He was started on guideline directed medical therapy including Jardiance, losartan and metoprolol tartrate and spironolactone. His blood pressure was significantly elevated. He was also drinking alcohol at that time. 01/23/2024: He is returning for follow-up today. He has been doing exceptionally well. No chest discomfort or significant shortness of breath. No orthopnea or PND. He had blood workup done on January 13 and saw his primary care physician and his Lasix was stopped and he was advised to decrease the spironolactone to 25 mg once a day. It appears he had a kidney injury on the blood workup. He is saying he has been hydrating himself but was spending some time in the sun exercising and biking. Otherwise doing well. No other concerns. 05/19/2024: He is here for follow-up. He has been doing well. No symptoms on follow-up. Blood pressure is well controlled currently. He is following with Nephrology because of acute kidney injury and has been off Entresto at this stage. He is stopped drinking completely. He has seen electrophysiology at [facility] and will be going for ablation end of May. [facility] Family History (Updated 05/19/24 @ 15:18 by Aislinn Walter CMA) Father Paroxysmal A-fib Social History Household Members: Children Housing: House Do you presently have visiting nurse or other home services: No Unable to assess alcohol history related to: Unable to respond Patient Tobacco Use Status: Never used Tobacco service: No Review of Systems Const Denies chills, Denies fatigue, Denies fever(s), Denies frequent falls, Denies weakness, Denies weight gain and Denies weight loss ENT Denies dizziness Card Denies chest pain, Denies leg edema, Denies lightheadedness, Denies palpitations, Denies dyspnea and Denies dyspnea on exertion Resp Denies cough, Denies dyspnea and Denies dyspnea on exertion GI Denies hematochezia Musc Denies abnormal gait, Denies muscle weakness, Denies numbness, Denies radiating pain into limb and Denies tingling Neuro Denies abnormal gait, Denies dizziness, Denies frequent falls, Denies numbness, Denies tingling and Denies weakness Endo Denies fatigue and Denies palpitations Physical Exam Vital Signs: Last Vital Signs Pulse 59 05/19/24 15:15 BP 120/80 05/19/24 15:15 BMI result Body Mass Index 40.3 GENERAL APPEARANCE: in no acute distress, pleasant. NECK: no carotid bruit, no jugular venous distention. SKIN: no suspicious lesions, warm and dry. HEART: no murmurs, regular rate and rhythm. LUNGS: clear to auscultation bilaterally. ABDOMEN: soft, nontender. EXTREMITIES: no edema. PERIPHERAL PULSES: equal. NEUROLOGIC: No gross deficits, AAO X 3 Office Procedures EKG Details: Sinus bradycardia 59 beats per minute, rightward axis, anterior lateral infarct, QTC 447 milliseconds. [id number], Complete Assessment & Plan Assessment & Plan (1) HTN (hypertension): Code(s): I10 - Essential (primary) hypertension Category: Medical (2) Atrial fibrillation: Code(s): I48.91 - Unspecified atrial fibrillation Category: Medical (3) Cardiomyopathy: Comment: Resolved Code(s): I42.9 - Cardiomyopathy, unspecified Category: Medical Plan Pleasant 48-year-old gentleman who is here for follow-up. He was seen in the hospital when he presented with congestive heart failure with AFib with RVR on background of hypertension and alcohol use. He was diuresed and eventually underwent JOAQUIN cardioversion. He has been on amiodarone since then with improvement in ejection fraction to 50 55%. Clinically she is euvolemic. Overall doing well. He has seen electrophysiology and will be going for ablation for atrial fibrillation in end of May. Once he is ablated we will get him off the amiodarone. He is on apixaban for anticoagulation. Follow-up with us in 4 months. Thank you for allowing me to participate in the care of your patient. Please feel free to contact me if you have any questions. Coding Level of Care Code Est Pt Level 4 (88243) Diagnoses HTN (hypertension) I10 Atrial fibrillation I48.91 Cardiomyopathy I42.9 CPT Codes EKG - CPT: 75739-[id number], Complete ([id number])
== END 2024-05-19 15:38 | disposition home or self-care (01) ==
PROVIDERS: PCP Internal Medicine; Visit Provider Internal Medicine Cardiovascular Disease
DX: I10 Essential (primary) hypertension (principal); I48.91 Unspecified atrial fibrillation; I42.9 Cardiomyopathy, unspecified
CPT/HCPCS: 93010; 99214

== ENCOUNTER → 2024-05-19 15:10 | Outpatient (BNVA) | payer BC, SELFPAY | PROVIDERS: PCP Internal Medicine; Visit Provider Internal Medicine Cardiovascular Disease | DX: I10 Essential (primary) hypertension (principal); I48.91 Unspecified atrial fibrillation; I42.9 Cardiomyopathy, unspecified; Z79.01 Long term (current) use of anticoagulants | CPT/HCPCS: 93005 ==

== ENCOUNTER 2024-06-16 13:59 | Outpatient (AMB) | payer BC, SELFPAY ==
[2024-06-16 14:03] VITALS: BP 120/98; PULSE 79; O2SAT 98; BMI 40.0
--- NOTE | 2024-06-16 14:03 | HO.NEPHOV ---
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 Recently he developed shortness of breath and was found to have atrial fibrillation and congestive heart failure. He is currently on amiodarone and antihypertensive medications have been added. He was on losartan on Lasix and amlodipine. Baseline creatinine was less than 1.0. Recently creatinine bumped up to 1.9 2 months ago. The recent creatinine was 1.56 and therefore losartan and furosemide has been placed on hold. He has been referred for further evaluation of renal insufficiency. No urinalysis available. History of alcohol intake in the past. Does not consume any alcohol at present. 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 He is younger brother also has hypertension. 03/20/24 Doing Ok; Trying to lose weight 06/16/23 s/p Ablation Feels better PFSH Family History Father Paroxysmal A-fib Social History Household Members: Children Housing: House Do you presently have visiting nurse or other home services: No Unable to assess alcohol history related to: Unable to respond Patient Tobacco Use Status: Never used Tobacco service: No Physical Exam Vital Signs: Last Vital Signs Pulse 79 06/16/24 14:03 BP 120/98 H 06/16/24 14:03 Pulse Ox 98 06/16/24 14:03 Oxygen Delivery Method Room Air 06/16/24 14:03 BMI result Body Mass Index 40.0 Comfortable Neck supple no JVD. Lungs entry equal no rales. Heart S1-S2 heard no gallop or rub. Abdomen soft nontender. Neuro alert awake oriented. No asterixis. Extremities no edema. Results Reviewed Nephrology Results: Hgb 16.3 g/dl (14.0-18.0) 04/24/24 WBC 8.5 X10*3/uL (4.8-10.8) 04/24/24 Plt Count 275 X10*3/uL (160-400) 04/24/24 Sodium 138 mmol/L (135-145) 04/24/24 Potassium 4.1 mmol/L (3.3-5.1) 04/24/24 Chloride 106 mmol/L (96-108) 04/24/24 Carbon Dioxide 26 mmol/L (22-29) 04/24/24 BUN 23 mg/dL (9-16) H 04/24/24 Creatinine 1.56 mg/dL (0.5-1.4) H 04/24/24 Calcium 9.3 mg/dL (8.4-10.2) 04/24/24 Urine Protein Negative mg/dL (Neg-Trace) 02/28/24 Urine Creatinine 161.48 mg/dL 02/28/24 Renal US 03/11/24 Assessment & Plan Assessment & Plan (1) LUPILLO (acute kidney injury): Code(s): N17.9 - Acute kidney failure, unspecified Category: Medical (2) HTN (hypertension): Code(s): I10 - Essential (primary) hypertension Category: Medical Plan 48-year-old man with atrial fibrillation and congestive heart failure in the setting of alcohol use in the past sustained acute kidney injury. Acute kidney injury is mostly due to hypoperfusion. He was on high dose of diuretics along with ARB which could have contributed. glomerular nephritis and obstructive uropathy were ruled out Agree with holding losartan and Lasix. Continue to avoid nephrotoxic agents. Discused weight loss Stay on low salt diet Goal is to optimize blood pressure and avoid hypotension. Orders: Orders Basic Metabolic Panel 4 Months I10 - Essential (primary) hypertension Coding Level of Care Code Tele New Pt Level 3 (20645) Diagnoses LUPILLO (acute kidney injury) N17.9 HTN (hypertension) I10
== END 2024-06-16 14:22 | disposition home or self-care (01) ==
PROVIDERS: PCP Internal Medicine; Visit Provider Internal Medicine Hypertension Specialist
DX: N17.9 Acute kidney failure, unspecified (principal); I10 Essential (primary) hypertension
CPT/HCPCS: 99213

== ENCOUNTER 2024-10-13 14:41 | Outpatient (REF) | payer BC, SELFPAY ==
[2024-10-13 16:11] LABS: Anion Gap 13 (12-20); Blood Urea Nitrogen 22 mg/dL (9-16); Calcium 9.4 mg/dL (8.4-10.2); Carbon Dioxide 24 mmol/L (22-29); Chloride 104 mmol/L (96-108); Estimated Glomerular Filt Rate > 60; Glucose Random 108 mg/dL (60-115); Sodium 137 mmol/L (135-145)
== END 2024-10-13 14:42 | disposition home or self-care (01) ==
LOC: HO.LAB 14:41
PROVIDERS: Visit Provider Internal Medicine Hypertension Specialist
DX: I10 Essential (primary) hypertension (principal)
CPT/HCPCS: 36415; 80048

== ENCOUNTER 2024-10-14 14:32 | Outpatient (AMB) | payer BC, SELFPAY ==
[2024-10-14 14:39] VITALS: BP 138/108; PULSE 97; O2SAT 96; BMI 40.6
--- NOTE | 2024-10-14 14:39 | HO.NEPHOV ---
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 Recently he developed shortness of breath and was found to have atrial fibrillation and congestive heart failure. He is currently on amiodarone and antihypertensive medications have been added. He was on losartan on Lasix and amlodipine. Baseline creatinine was less than 1.0. Recently creatinine bumped up to 1.9 2 months ago. The recent creatinine was 1.56 and therefore losartan and furosemide has been placed on hold. He has been referred for further evaluation of renal insufficiency. No urinalysis available. History of alcohol intake in the past. Does not consume any alcohol at present. 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 He is younger brother also has hypertension. 03/20/24 ; Doing Ok; Trying to lose weight 06/16/23 ;s/p Ablation ; Feels better 10/14/24: Feels better- off anticoagulation Forgot to take meds today Usually complaints Has gained 5+ lbs PFSH Family History Father Paroxysmal A-fib Social History Household Members: Children Housing: House Do you presently have visiting nurse or other home services: No Unable to assess alcohol history related to: Unable to respond Patient Tobacco Use Status: Never used Tobacco service: No Physical Exam Vital Signs: Last Vital Signs Pulse 97 10/14/24 14:39 BP 138/108 H 10/14/24 14:39 Pulse Ox 96 10/14/24 14:39 Oxygen Delivery Method Room Air 10/14/24 14:39 BMI result Body Mass Index 40.6 Comfortable Neck supple no JVD. Lungs entry equal no rales. Heart S1-S2 heard no gallop or rub. Abdomen soft nontender. Neuro alert awake oriented. No asterixis. Extremities no edema. Results Reviewed Nephrology Results: Hgb 16.3 g/dl (14.0-18.0) 04/24/24 WBC 8.5 X10*3/uL (4.8-10.8) 04/24/24 Plt Count 275 X10*3/uL (160-400) 04/24/24 Sodium 137 mmol/L (135-145) 10/13/24 Potassium 4.0 mmol/L (3.3-5.1) 10/13/24 Chloride 104 mmol/L (96-108) 10/13/24 Carbon Dioxide 24 mmol/L (22-29) 10/13/24 BUN 22 mg/dL (9-16) H 10/13/24 Creatinine 1.28 mg/dL (0.5-1.4) 10/13/24 Calcium 9.4 mg/dL (8.4-10.2) 10/13/24 Urine Protein Negative mg/dL (Neg-Trace) 02/28/24 Urine Creatinine 161.48 mg/dL 02/28/24 Renal US 03/11/24 Assessment & Plan Assessment & Plan (1) LUPILLO (acute kidney injury): Code(s): N17.9 - Acute kidney failure, unspecified Category: Medical (2) HTN (hypertension): Code(s): I10 - Essential (primary) hypertension Category: Medical Plan Middle aged man with atrial fibrillation and congestive heart failure in the setting of alcohol use in the past sustained acute kidney injury. Acute kidney injury is mostly due to hypoperfusion. He was on high dose of diuretics along with ARB which could have contributed. glomerular nephritis and obstructive uropathy were ruled out Cr is down to 1.28 Agree with holding losartan and Lasix. BP is elevated today due to skipping medications Encourage to take meds regularly and check BP at home. Call if SBP > 140 at home Continue to avoid nephrotoxic agents. Discused weight loss Stay on low salt diet Goal is to optimize blood pressure and avoid hypotension. Orders: Orders Basic Metabolic Panel 6 Months N17.9 - Acute kidney failure, unspecified Coding Level of Care Code Est Pt Level 4 (08055) Diagnoses LUPILLO (acute kidney injury) N17.9 HTN (hypertension) I10
== END 2024-10-14 14:57 | disposition home or self-care (01) ==
LOC: HO.HKA 14:39
PROVIDERS: PCP Internal Medicine; Visit Provider Internal Medicine Hypertension Specialist
DX: N17.9 Acute kidney failure, unspecified (principal); I10 Essential (primary) hypertension
CPT/HCPCS: 99214

== ENCOUNTER → 2024-10-14 14:32 | Outpatient (BNVA) | payer BC, SELFPAY | PROVIDERS: PCP Internal Medicine; Visit Provider Internal Medicine Hypertension Specialist ==

== ENCOUNTER 2024-10-22 15:24 | Outpatient (AMB) | payer BC, SELFPAY ==
[2024-10-22 15:40] VITALS: BP 120/80; PULSE 81; BMI 40.2
--- NOTE | 2024-10-22 15:40 | MHC.OFFVIS ---
Vital Signs 10/22/24 15:40 Height 6 ft 1 in Weight 304 lb 10.861 oz BMI 40.2 BP 120/80 Blood Pressure Location Lt brachial Position Sitting Pulse 81 Pulse Source Monitor Intake Visit Reasons: 5 mth f/up Intake Note: 5 mth f/up Core Analyst Required: No Accompanied by: Self / Same As Patient Allergies No Known Allergies Allergy (Verified 10/14/24 14:41) Medication List - Last Reconciled 10/22/24 by Brad Khanna MD amlodipine 10 mg See Protocol PO DAILY empagliflozin (Jardiance) 10 mg PO DAILY metoprolol tartrate 75 mg PO BID spironolactone 25 mg See Protocol PO DAILY HPI Comments Details: Pleasant 49 year gentleman who is here for follow-up. He was seen in 10/29/2023 at [facility] when he presented with congestive heart failure new onset atrial fibrillation with rapid ventricular response. His EF by echocardiography was severely reduced. 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 He was started on guideline directed medical therapy including Jardiance, losartan and metoprolol tartrate and spironolactone. His blood pressure was significantly elevated. He was also drinking alcohol at that time. 01/23/2024: He is returning for follow-up today. He has been doing exceptionally well. No chest discomfort or significant shortness of breath. No orthopnea or PND. He had blood workup done on January 13 and saw his primary care physician and his Lasix was stopped and he was advised to decrease the spironolactone to 25 mg once a day. It appears he had a kidney injury on the blood workup. He is saying he has been hydrating himself but was spending some time in the sun exercising and biking. Otherwise doing well. No other concerns. 05/19/2024: He is here for follow-up. He has been doing well. No symptoms on follow-up. Blood pressure is well controlled currently. He is following with Nephrology because of acute kidney injury and has been off Entresto at this stage. He is stopped drinking completely. He has seen electrophysiology at [facility] and will be going for ablation end of May. 10/22/2024 he is here for follow-up. He is off amiodarone and apparently has been taken off the Eliquis by electrophysiology team. His CHADS-VASc score is 2 for hypertension and congestive heart failure. He is in sinus rhythm and has been doing well. Blood pressure well controlled. PFSH Family History Father Paroxysmal A-fib Social History Household Members: Children Housing: House Do you presently have visiting nurse or other home services: No Unable to assess alcohol history related to: Unable to respond Patient Tobacco Use Status: Never used Tobacco service: No Review of Systems Const Denies chills, Denies fatigue, Denies fever(s), Denies frequent falls, Denies weakness, Denies weight gain and Denies weight loss ENT Denies dizziness Card Denies chest pain, Denies leg edema, Denies lightheadedness, Denies palpitations, Denies dyspnea and Denies dyspnea on exertion Resp Denies cough, Denies dyspnea and Denies dyspnea on exertion GI Denies hematochezia Musc Denies abnormal gait, Denies muscle weakness, Denies numbness, Denies radiating pain into limb and Denies tingling Neuro Denies abnormal gait, Denies dizziness, Denies frequent falls, Denies numbness, Denies tingling and Denies weakness Endo Denies fatigue and Denies palpitations Physical Exam Vital Signs: Last Vital Signs Pulse 81 10/22/24 15:40 BP 120/80 10/22/24 15:40 BMI result Body Mass Index 40.2 GENERAL APPEARANCE: in no acute distress, pleasant. NECK: no carotid bruit, no jugular venous distention. SKIN: no suspicious lesions, warm and dry. HEART: no murmurs, regular rate and rhythm. LUNGS: clear to auscultation bilaterally. ABDOMEN: soft, nontender. EXTREMITIES: no edema. PERIPHERAL PULSES: equal. NEUROLOGIC: No gross deficits, AAO X 3 Office Procedures EKG Details: Sinus rhythm 81 beats per minute, right axis deviation, anteroseptal infarct, QTC 441 milliseconds. [id number], Complete Assessment & Plan Assessment & Plan (1) HTN (hypertension): Code(s): I10 - Essential (primary) hypertension Category: Medical (2) Atrial fibrillation: Code(s): I48.91 - Unspecified atrial fibrillation Category: Medical (3) Cardiomyopathy: Comment: Resolved Code(s): I42.9 - Cardiomyopathy, unspecified Category: Medical Plan Pleasant 49 year gentleman with background of atrial fibrillation alcoholism had a cardiomyopathy and congestive heart failure. He was diuresed and started on guideline directed medical therapy. Eventually cardioverted and started on amiodarone and underwent ablation and now he is off amiodarone. He had cardiomyopathy which has resolved. Clinically euvolemic at this stage. He has been taken off the anticoagulation by electrophysiology team. His heart failure was due to alcoholism and AFib and as his cardiomyopathy has improved he has been euvolemic and has no symptoms. He is currently not on diuretics. One way of looking at this scenario is that the heart failure has resolved but can he developed diastolic heart failure in the future is a question. In any case currently his CHADS-VASc score is 1-2 if we take heart failure into consideration. We will continue to monitor fibrillation using his watch. If he any episodes he will reach us. He will see us back in 3 months Thank you for allowing me to participate in the care of your patient. Please feel free to contact me if you have any questions. Coding Level of Care Code Est Pt Level 4 (13156) Diagnoses HTN (hypertension) I10 Atrial fibrillation I48.91 Cardiomyopathy I42.9 CPT Codes EKG - CPT: [id number], Complete ([id number])
== END 2024-10-22 16:02 | disposition home or self-care (01) ==
LOC: HO.HCS 15:24
PROVIDERS: PCP Internal Medicine; Visit Provider Internal Medicine Cardiovascular Disease
DX: I10 Essential (primary) hypertension (principal); I48.91 Unspecified atrial fibrillation; I42.9 Cardiomyopathy, unspecified
CPT/HCPCS: 93010; 99214

== ENCOUNTER → 2024-10-22 15:24 | Outpatient (BNVA) | payer BC, SELFPAY | PROVIDERS: PCP Internal Medicine; Visit Provider Internal Medicine Cardiovascular Disease | DX: I11.0 Hypertensive heart disease with heart failure (principal); I50.9 Heart failure, unspecified; I48.91 Unspecified atrial fibrillation | CPT/HCPCS: 93005 ==

== ENCOUNTER 2025-02-17 15:27 | Outpatient (AMB) | payer BC, SELFPAY ==
--- NOTE | 2025-02-17 15:30 | A.OFFPC_ITS ---
Vital Signs 02/17/25 15:35 Height 6 ft 1 in Weight 315 lb BMI 41.6 BP 118/70 Blood Pressure Location Rt brachial Position Sitting Respiration 18 Pulse 86 Pulse Source Pulse Oximeter Temp 97.3 F Temp Source Temporal Artery Scan Pulse Oximetry (%) 98 Oxygen Delivery Method Room Air Intake Visit Reasons: Annual / PE / Dr Bustos Tool Drawing Checker Required: No Accompanied by: Self / Same As Patient Allergies No Known Allergies Allergy (Verified 02/17/25 15:31) Tobacco use date assessed: 02/17/25 Dental Screening Did you have a dental visit in the last 12 months?: Yes HPI HPI Comments History of Present Illness Details The patient is a 49-year-old male presenting for an annual physical examination. The patient has a history of atrial fibrillation, which was diagnosed approximately one and a half years ago after experiencing shortness of breath and subsequent hospitalization. Since diagnosis, he underwent cardioversion and an ablation procedure. Post-procedurally, he has not had any further episodes of atrial fibrillation and reports feeling well overall. He has been on medications which initially included Eliquis, but it has since been discontinued by the regular senior care provider; however, he remains on other cardiovascular medications. Moreover, the patient discussed challenges with weight management despite being active, exercising three to four times weekly, and having made dietary adjustments including significantly reducing alcohol intake. He expressed concern about not losing weight as expected. His history includes heart failure with reduced ejection fraction noted during hospitalization, which has now resolved as evidenced by an echocardiography result of 50 to 55, indicating recovery. The patient has been managing his hypertension with several medications; however, it was noted that there is uncertainty about the appropriateness of taking both 5 mg and 10 mg doses of amlodipine simultaneously. The patient also mentioned a family history of cancer and expressed interest in undergoing colorectal cancer screening, particularly due to his girlfriend's recent cancer diagnosis. He acknowledged the importance of maintaining routine health checks, noting a previous lapse in regular checkups contributed to unmanaged hypertension. 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 - Housing: Stable housing - Substance use: Reduced alcohol consump tion to possibly once a week; occasional cannabis use; non-smoker - Exercise: Active, exercises regularly 3 to 4 times per week - Weight management: Struggles with weig ht loss despite lifestyle modifications [facility] Medical History (Updated 02/17/25 @ 15:59 by Eyad Graham MD) Heart failure with recovered ejection fraction (HFrecEF) Family History Father Paroxysmal A-fib Social History Household Members: Children Housing: House Do you presently have visiting nurse or other home services: No Unable to assess alcohol history related to: Unable to respond Patient Tobacco Use Status: Never used Tobacco e-Cigarette/Vaping Use: Never Used service: No Current occupational status: employed 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 1. Little interest or pleasure in doing things: not at all 2. Feeling down, depressed, or hopeless: not at all 3. Trouble falling or staying asleep, or sleeping too much: not at all 4. Feeling tired or having little energy: not at all 5. Poor appetite or overeating: not at all 6. Feeling bad about yourself - or that you are a failure or have let yourself or your family down: not at all 7. Trouble concentrating on things, such as reading the newspaper or watching television: not at all 8. Moving or speaking so slowly that other people could have noticed. Or the opposite - being so fidgety or restless that you have been moving around a lot more than usual: not at all 9. Thoughts that you would be better off or of hurting yourself in some way: not at all Total score: 0 Depression Screening Interpretation: Negative Depression Screening Done: Yes 13122 - PHQ-9 Billing: Yes Source: Developed by Drs. Sudarshan Torres, Beverly Pantoja, Florentino Siddiqi and colleagues, with an educational renetta from [employer]. Thrive Questionnaire Date Thrive assessed: 02/17/25 I am a: Patient What is your living situation today?: I have a steady place to live Within the past 12 months, did the food you bought not last and you didn't have the money to get more?: Never true Within the past 12 months, did you worry whether your food would run out before you got money to buy more?: Never true Do you have trouble paying for medicines?: No Do you have trouble getting transportation to medical appointments?: No Do you have trouble paying your heating and electricity bill?: No Do you have trouble taking care of your child, family member or friend?: No Do you have trouble with day-to-day activities such as bathing, preparing meals, shopping, managing finances, etc.?: No Are you currently unemployed and looking for a job?: No Are you interested in more education?: No THRIVE Score: 0 AUDIT C Alcohol Use Questionnaire (AUDIT-C) 1. How often do you have a drink containing alcohol?: 2-4 times a month 2. How many drinks containing alcohol do you have on a typical day when you are drinking?: 3 or 4 Total Score: 3 Score Reviewed/Action Taken: Yes MISSY-7 AMB Questionnaire MISSY-7 Date MISSY - 7 assessed: 02/17/25 Feeling nervous, anxious, or on edge: 0 = Not at all Not being able to stop or control worryin = Not at all Worrying too much about different things: 0 = Not at all Trouble relaxin = Not at all Being so restless that it is hard to sit still: 0 = Not at all Becoming easily annoyed or irritable: 0 = Not at all Feeling afraid as if something awful might happen: 0 = Not at all Total MISSY-7 score (0-4 normal; 5-9 mild; 10-14 moderate; 15-21 severe): 0 Source: Developed by Drs. Sudarshan Torres, Beverly Pantoja, Florentino Siddiqi and colleagues, with an educational renetta from [employer]. MISSY-7 Assessment Billing MISSY-7 Assessment Tool: MISSY-7 Assessment 61793 Review of Systems Const Details: - Cardiovascular: Reports previous episodes of atrial fibrillation - Respiratory: Denies current shortness of breath - Gastrointestinal: No current gastrointestinal complaints - Musculoskeletal: Reports past swelling, currently resolved All systems reviewed & are unremarkable except as noted in HPI and below Physical exam (Primary Care) Vital Signs: Last Vital Signs Temp 97.3 F 02/17/25 15:35 Pulse 86 02/17/25 15:35 Resp 18 02/17/25 15:35 BP 118/70 02/17/25 15:35 Pulse Ox 98 02/17/25 15:35 Oxygen Delivery Method Room Air 02/17/25 15:35 BMI result Body Mass Index 41.6 Tobacco/Smoking Status: Tobacco use Status Tobacco use date assessed 02/17/25 02/17/25 15:38 Patient Tobacco Use Status Never used Tobacco 02/17/25 15:38 e-Cigarette/Vaping Use Never Used 02/17/25 15:38 Depression Screening Interpretation: Negative Thrive Assessment: Date of Thrive Assessment Date Thrive assessed 10/31/23 02/17/25 15:38 Const Other: General: +Alert and oriented, Well nourished, No acute distress. Eye: Pupils are equal, round and reactive to light, Intact accommodation, Extraocular movements are intact, Normal conjunctiva, Vision unchanged. HENT: Normocephalic, Atraumatic, Tympanic membranes are clear, Normal hearing, Oral mucosa is moist, No pharyngeal erythema, Ear canals patent. Respiratory: Lungs CTA bilaterally, No wheeze, Respirations are non-labored. Cardiovascular: Regular rate, Regular rhythm, S1 auscultated, S2 auscultated, No murmur, Good pulses equal in all extremities, Normal peripheral perfusion, 1+ edema on the left leg, increased edema on the right leg. Gastrointestinal: Soft, Non-tender, Non-distended, Normal bowel sounds, No organomegaly. Musculoskeletal: Normal range of motion, Normal strength, No tenderness, No swelling, No deformity, Normal gait. Integumentary: Warm, Dry, [place], Intact. Neurologic: Alert, Oriented, Normal sensory, Normal motor function, No focal defects, Cranial Nerves II-XII are grossly intact, Normal deep tendon reflexes. Psychiatric: Cooperative, Appropriate mood & affect, Normal judgment. Coding Level of Care Code New Pt Level 4 (23806) New Pt Prev Care 40-64y(44435) Diagnoses Hypertension, unspecified type I10 Hypertension type: unspecified Heart failure with recovered ejection fraction (HFrecEF) I50.20 Atrial fibrillation, unspecified type I48.91 Atrial fibrillation type: unspecified Additional Codes PHQ-9 - 70664 - PHQ-9 Billing: Yes ([id number]) MISSY-7 Assessment Billing - MISSY-7 Assessment Tool: MISSY-7 Assessment 96248 ([id number]) Assessment & Plan Assessment & Plan (1) HTN (hypertension): Comment: Currently being managed on amlodipine 10 mg q.h.s. and 5 mg in morning in addition to spironolactone and metoprolol tartrate 75 mg b.i.d. with pressures well-controlled Advised patient to cut down to 10 mg daily and to continue monitoring blood pressures. If he does have an increase in his blood pressure after discontinuing 5 mg to resume the medications Code(s): I10 - Essential (primary) hypertension Category: Medical Qualifiers: Hypertension type: unspecified Qualified Code(s): I10 - Essential (primary) hypertension (2) Heart failure with recovered ejection fraction (HFrecEF): Comment: Hospitalization with heart failure to see if with an improvement in EF to 50-55% Currently follows with cardiology and on Jardiance, spironolactone and metoprolol 75 mg b.i.d. Does have 1+ bilateral lower extremity however no complaints of shortness of breath or chest pain Code(s): I50.20 - Unspecified systolic (congestive) heart failure Category: Medical (3) Atrial fibrillation: Comment: Admitted in 2023 and subsequently underwent cardioversion, an ablation. Giorgi Vasc score 1 therefore no longer on anticoagulation per Cardiology Monitoring symptoms with apple watch and no symptoms since then Code(s): I48.91 - Unspecified atrial fibrillation Category: Medical Qualifiers: Atrial fibrillation type: unspecified Qualified Code(s): I48.91 - Unspecified atrial fibrillation Plan During our discussion, I emphasized the importance of maintaining consistent follow-ups and health screenings. We agreed to adjust his amlodipine dosage due to the lack of evidence supporting the higher dose, and I suggested monitoring his blood pressure at home. We discussed the significance of continuing to engage in cardiovascular exercise and the impact of lifestyle changes on weight management. I addressed the colonoscopy screening given his family history of colorectal cancer. I offered reassurance and praise for his commitment to health, acknowledging his efforts to stay active and reduce alcohol use. We concluded with a plan to follow up based on lab results and to arrange a colonoscopy. Orders: Orders Hepatitis A,B,C Profile Today I10 - Essential (primary) hypertension Lipid Panel Today I10 - Essential (primary) hypertension TSH reflex Free T4 Today I10 - Essential (primary) hypertension Vitamin D 25-OH Total Today I10 - Essential (primary) hypertension Complete Blood Count Auto Diff Today I10 - Essential (primary) hypertension Comprehensive Met. Panel Today I10 - Essential (primary) hypertension Hemoglobin A1c Today I10 - Essential (primary) hypertension HIV Ab/Ag Today I10 - Essential (primary) hypertension Syphilis Screen Today I10 - Essential (primary) hypertension Referrals Open Access Screening Colonoscopy Referral Z12.11 - Encounter for screening for malignant neoplasm of colon Medications: On Hold amlodipine Hold Comment: Dose Change 5 mg PO DAILY 90 tabs 3RF Patient Instructions: - Decrease Amlodipine to 10 mg daily and monitor blood pressure at home. - Continue exercising regularly, aiming for at least 20-30 minutes of cardio most days of the week. - Maintain a healthy diet to support weight management efforts. - Schedule and prepare for a colonoscopy as advised. - Expect a follow-up call regarding lab results and colonoscopy scheduling. - Raise legs when resting to help with occasional swelling. - Limit alcohol intake as discussed.
[2025-02-17 15:35] VITALS: BP 118/70; PULSE 86; RESP 18; TEMP 36.3; O2SAT 98; BMI 41.6
== END 2025-02-17 16:03 | disposition home or self-care (01) ==
PROVIDERS: PCP Student in an Organized Health Care Education/Training Program; Visit Provider Student in an Organized Health Care Education/Training Program
DX: Z00.00 Encounter for general adult medical examination without abnormal findings (principal); I11.0 Hypertensive heart disease with heart failure; I50.20 Unspecified systolic (congestive) heart failure; I48.91 Unspecified atrial fibrillation

== ENCOUNTER → 2025-02-17 15:27 | Outpatient (BNVA) | payer BC, SELFPAY | PROVIDERS: PCP Student in an Organized Health Care Education/Training Program; Visit Provider Student in an Organized Health Care Education/Training Program | DX: I11.0 Hypertensive heart disease with heart failure (principal); I50.20 Unspecified systolic (congestive) heart failure; I48.91 Unspecified atrial fibrillation; Z79.899 Other long term (current) drug therapy; Z13.31 Encounter for screening for depression; Z13.39 Encounter for screening examination for other mental health and behavioral disorders | CPT/HCPCS: 96127 ==

== ENCOUNTER 2025-03-16 14:36 | Outpatient (AMB) | payer BC, SELFPAY ==
--- NOTE | 2025-03-16 14:53 | A.OFFVIS_ITS ---
Vital Signs 03/16/25 14:54 Height 6 ft 1 in Weight 312 lb 9.848 oz BMI 41.2 BP 120/72 Blood Pressure Location Lt brachial Position Sitting Pulse 99 Pulse Source Pulse Oximeter Intake Visit Reasons: 3 mth f/up Intake Note: 3 mth f/up Linen Sorter Required: No Accompanied by: Self / Same As Patient Allergies No Known Allergies Allergy (Verified 02/17/25 15:31) Medication List - Last Reconciled 03/16/25 by Brad Khanna MD amlodipine 10 mg PO DAILY empagliflozin (Jardiance) 10 mg PO DAILY metoprolol tartrate 75 mg PO BID spironolactone 25 mg PO BID HPI Comments Details: Pleasant 49 year gentleman who is here for follow-up. He was seen in 10/29/2023 at [facility] when he presented with congestive heart failure new onset atrial fibrillation with rapid ventricular response. His EF by echocardiography was severely reduced. 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 He was started on guideline directed medical therapy including Jardiance, losartan and metoprolol tartrate and spironolactone. His blood pressure was significantly elevated. He was also drinking alcohol at that time. 01/23/2024: He is returning for follow-up today. He has been doing exceptionally well. No chest discomfort or significant shortness of breath. No orthopnea or PND. He had blood workup done on January 13 and saw his primary care physician and his Lasix was stopped and he was advised to decrease the spironolactone to 25 mg once a day. It appears he had a kidney injury on the blood workup. He is saying he has been hydrating himself but was spending some time in the sun exercising and biking. Otherwise doing well. No other concerns. 05/19/2024: He is here for follow-up. He has been doing well. No symptoms on follow-up. Blood pressure is well controlled currently. He is following with Nephrology because of acute kidney injury and has been off Entresto at this stage. He is stopped drinking completely. He has seen electrophysiology at [facility] and will be going for ablation end of May. 10/22/2024 he is here for follow-up. He is off amiodarone and apparently has been taken off the Eliquis by electrophysiology team. His CHADS-VASc score is 2 for hypertension and congestive heart failure. He is in sinus rhythm and has been doing well. Blood pressure well controlled. 03/16/2025: He is here for follow-up. He has been doing well. He continues to be in sinus rhythm. No chest discomfort shortness of breath. Blood pressure well controlled. He is rarely drinking beer. 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 Review of Systems Const Denies chills, Denies fatigue, Denies fever(s), Denies frequent falls, Denies weakness, Denies weight gain and Denies weight loss ENT Denies dizziness Card Denies chest pain, Denies leg edema, Denies lightheadedness, Denies palpitations, Denies dyspnea and Denies dyspnea on exertion Resp Denies cough, Denies dyspnea and Denies dyspnea on exertion GI Denies hematochezia Musc Denies abnormal gait, Denies muscle weakness, Denies numbness, Denies radiating pain into limb and Denies tingling Neuro Denies abnormal gait, Denies dizziness, Denies frequent falls, Denies numbness, Denies tingling and Denies weakness Endo Denies fatigue and Denies palpitations Physical Exam Vital Signs: Last Vital Signs Pulse 99 03/16/25 14:54 BP 120/72 03/16/25 14:54 BMI result Body Mass Index 41.2 GENERAL APPEARANCE: in no acute distress, pleasant. NECK: no carotid bruit, no jugular venous distention. SKIN: no suspicious lesions, warm and dry. HEART: no murmurs, regular rate and rhythm. LUNGS: clear to auscultation bilaterally. ABDOMEN: soft, nontender. EXTREMITIES: no edema. PERIPHERAL PULSES: equal. NEUROLOGIC: No gross deficits, AAO X 3 Assessment & Plan Assessment & Plan (1) HTN (hypertension): Comment: Currently being managed on amlodipine 10 mg q.h.s. and 5 mg in morning in addition to spironolactone and metoprolol tartrate 75 mg b.i.d. with pressures well-controlled Advised patient to cut down to 10 mg daily and to continue monitoring blood pressures. If he does have an increase in his blood pressure after discontinuing 5 mg to resume the medications Code(s): I10 - Essential (primary) hypertension Category: Medical Qualifiers: Hypertension type: unspecified Qualified Code(s): I10 - Essential (primary) hypertension (2) RADHA (obstructive sleep apnea): Code(s): G47.33 - Obstructive sleep apnea (adult) (pediatric) Category: Medical (3) Chronic diastolic heart failure: Code(s): I50.32 - Chronic diastolic (congestive) heart failure Category: Medical (4) Atrial fibrillation: Comment: Admitted in 2023 and subsequently underwent cardioversion, an ablation. Giorgi Vasc score 1 therefore no longer on anticoagulation per Cardiology Monitoring symptoms with apple watch and no symptoms since then Code(s): I48.91 - Unspecified atrial fibrillation Category: Medical Qualifiers: Atrial fibrillation type: unspecified Qualified Code(s): I48.91 - Unspecified atrial fibrillation (5) Cardiomyopathy: Comment: Resolved Code(s): I42.9 - Cardiomyopathy, unspecified Category: Medical Plan Pleasant 49 year gentleman with background of atrial fibrillation alcoholism had a cardiomyopathy and congestive heart failure. He was diuresed and started on guideline directed medical therapy. Eventually cardioverted and started on amiodarone and underwent ablation and now he is off amiodarone. He had cardiomyopathy which has resolved. Clinically euvolemic at this stage. He has been taken off the anticoagulation by electrophysiology team. His heart failure was due to alcoholism and AFib and as his cardiomyopathy has improved he has been euvolemic and has no symptoms. He is currently not on diuretics. One way of looking at this scenario is that the heart failure has resolved but can he develop diastolic heart failure in the future is a question. In any case currently his CHADS-VASc score is 1-2 if we take heart failure into consideration. We will continue to monitor fibrillation using his watch. If he any episodes he will reach out to us. He will see us back in 6 months Thank you for allowing me to participate in the care of your patient. Please feel free to contact me if you have any questions. Orders: Referrals Pulmonology Referral G47.33 - Obstructive sleep apnea (adult) (pediatric) Coding Level of Care Code Est Pt Level 4 (61850) Diagnoses Hypertension, unspecified type I10 Hypertension type: unspecified RADHA (obstructive sleep apnea) G47.33 Chronic diastolic heart failure I50.32 Atrial fibrillation, unspecified type I48.91 Atrial fibrillation type: unspecified Cardiomyopathy I42.9
[2025-03-16 14:54] VITALS: BP 120/72; PULSE 99; BMI 41.2
== END 2025-03-16 15:21 | disposition home or self-care (01) ==
LOC: HO.HCS 14:36
PROVIDERS: PCP Student in an Organized Health Care Education/Training Program; Visit Provider Internal Medicine Cardiovascular Disease
DX: I10 Essential (primary) hypertension (principal); G47.33 Obstructive sleep apnea (adult) (pediatric); I50.32 Chronic diastolic (congestive) heart failure; I48.91 Unspecified atrial fibrillation; I42.9 Cardiomyopathy, unspecified
CPT/HCPCS: 99214